=== PATIENT | male | born 1975 | race Caucasian/White ===

== ENCOUNTER 2023-04-24 10:53 | Outpatient (OUT) | payer OTHER, SELFPAY ==
--- NOTE | 2023-04-24 11:00 | ECG_ITS ---
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
== END 2023-04-24 10:54 | disposition home or self-care (01) ==
PROVIDERS: PCP Family Medicine; Visit Provider Surgery
DX: Z01.810 Encounter for preprocedural cardiovascular examination (principal); R00.1 Bradycardia, unspecified; K40.91 Unilateral inguinal hernia, without obstruction or gangrene, recurrent
CPT/HCPCS: 93005

== ENCOUNTER 2023-05-01 08:53 | Day surgery (SDC) | payer OTHER, SELFPAY ==
[2023-04-24 11:13] VITALS: PULSE 59; RESP 14; TEMP 36.3; O2SAT 97; BMI 27.1
[2023-05-01] VITALS (9 sets, daily range): BP systolic 96–120; BP diastolic 62–84; PULSE 59–82; RESP 10–20; TEMP 36.2–36.4; O2SAT 94–99; BMI 26.5
[2023-05-01] MEDS: LACTATED RINGER'S SOLUTION 1,000 ML 50 ML IV ×2 (09:35→13:08)
[2023-05-01] MEDS: CEFAZOLIN SODIUM/DEXTROSE 2 GM/50 ML PIGGYBACK IV (10:39)
[2023-05-01] MEDS: LACTATED RINGER'S SOLUTION 1,000 ML 1000 ML IV (11:25)
[2023-05-01] MEDS: BUPIVACAINE HCL 0.25% PF 25 MG/10 ML VIAL INJ (11:32)
[2023-05-01] MEDS: BUPIVACAINE LIPOSOME/PF 266 MG/13.3 ML VIAL INJ (11:32)
--- NOTE | 2023-05-01 13:03 | PC.NURSE ---
3 dressings across abdomen dry and intact x3
--- NOTE | 2023-05-01 13:07 | PC.NURSE ---
dressings x3 across abdomen dry and intact
--- NOTE | 2023-05-01 13:09 | P.GSPRC_ITS ---
Indications for Procedure: Patient is a 47-year-old male who was seen recently for an apparent recurrent right inguinal hernia. Following evaluation robotic repair of the recurrent right inguinal hernia was recommended. The risks benefits options and potential complications of the procedure were discussed in detail with the patient agreed to proceed and consent was signed. Pre-op diagnosis: recurrent right Inguinal hernia Post-op diagnosis: same Procedure: Robotic repair of # inguinal hernia with mesh Anesthesia: CAMILA Surgeon: Randolph Perry Procedure Summary: Patient was brought to the operating room and placed in the supine position. Gen. anesthesia was induced the patient was intubated. The abdomen is prepped in sterile fashion. Anesthesia performed a regional block. Abdomen is then again prepped and draped in sterile fashion. following local anesthesia a small incision was made in the left upper abdomen. with laparoscopic guidance an 8 mm robotic trocar was placed through this incision and advanced into the peritoneal cavity. The abdomen is then insufflated to 15 mmHg of carbon dioxide. The camera was introduced and safe port site entry confirmed. Two additional 8 mm robotic ports were placed one in the right lateral abdomen and one just superior to the umbilicus following local anesthesia under direct visualization. The patient was then placed in Trendelenburg position. At this time the da Carlee XI was brought to the field. All ports were docked and instruments introduced in standard fashion. At this time I left the operating table and attended the surgeon's funeral pre arrangement counselor. The right inguinal hernia was readily identified. The peritoneum was incised above the defect from the midline extending to the right lateral abdomen. The peritoneal flap was then created with electrocautery as well as blunt and sharp dissection. A relatively large hernia sac was identified. With a combination of the traction as well as cautery and sharp dissection the sac was freed from the associated cord structures and completely reduced to the level of the peritoneum. Jamil's ligament was then identified also. The pre-peritoneal space was then further expanded to allow mesh placement. A 15 cm x 9 cm progrip mesh was then introduced into the peritoneal cavity. This was placed in the preperitoneal space and unfolded and flattened with excellent coverage of the hernia defect as well as other potential sites for defects. Hemostasis was noted. The peritoneal defect was then closed with a running suture of 3-0V LOC. No other abnormalities were noted. The da Carlee XI was then undocked and the abdomen desufflated with removal of the ports. Incisions were closed with subcuticular sutures of 4-0 Vicryl. Sponge needle and instrument counts were correct at the end of the procedure. The patient tolerated the procedure well and was transferred to the recovery area in stable condition. Estimated blood loss (mL): 5 Specimens: None Complications: No
--- NOTE | 2023-05-01 13:13 | PC.NURSE ---
dressings x3 to abdomen dry and intact
--- NOTE | 2023-05-01 13:18 | PC.NURSE ---
Dressings x3 across abdomen dry and intact
--- NOTE | 2023-05-01 13:53 | PC.NURSE ---
scant bloody drainage on each of 3 dressings across abdomen; areas marked
--- NOTE | 2023-05-01 14:21 | PC.NURSE ---
iNCISIONS X3 WITH SCANT BLOODY DRAINAGE ON EACH DRESSING X3
== END 2023-05-01 14:23 | disposition home or self-care (01) ==
PROVIDERS: PCP Internal Medicine; Visit Provider Surgery
PROC: (CPT 49651; principal; 2023-05-01 10:00)
DX: K40.91 Unilateral inguinal hernia, without obstruction or gangrene, recurrent (principal); G89.18 Other acute postprocedural pain; R10.9 Unspecified abdominal pain
CPT/HCPCS: 49651; 93005; 96361; 96374; 96375; 99284; C1781; J1170; J2704

== ENCOUNTER 2023-05-01 18:54 | Emergency (ER) | payer OTHER, SELFPAY ==
[2023-05-01] VITALS (7 sets, daily range): BP systolic 116–128; BP diastolic 68–79; PULSE 86–94; RESP 16–18; TEMP 36.9; O2SAT 91–94; BMI 26.4
--- NOTE | 2023-05-01 19:12 | ED_ITS ---
HPI - Abdominal Pain General Chief Complaint: Abdominal Pain Stated Complaint: abdominal pain Time Seen by Provider: 05/01/23 19:03 Source: patient Mode of arrival: ambulance Limitations: no limitations History of Present Illness HPI narrative: This 47-year-old male was brought to the emergency department by EMS from home. He had a inguinal herniorrhaphy earlier today with Dr. Perry. He was given [place] to take for pain but told only take half of one later this evening. He states he is in severe pain. He states that he took some Tylenol earlier in the day. After getting home he urinated and went to sleep. When he woke up and went to urinate the 2nd time he states he had sharp stabbing lower abdominal pain and passed out striking the wall. He denies any nausea at this time. He has not been passing gas. MD elicited complaint: Reports abdominal pain Related Data Previous Rx's Medication Instructions Recorded hydrocodone 5 mg-acetaminophen 325 1 tab PO Q6H PRN pain #14 tabs 05/01/23 mg tablet Allergies Allergy/AdvReac Type Severity Reaction Status Date / Time Penicillins Allergy Rash Verified 04/24/23 11:11 Review of Systems ROS Status of ROS 10 or more systems reviewed and unremarkable except as noted in history and below [facility] Medical History (Updated 05/01/23 @ 20:08 by Maria R Cifuentes MD) Surgical History (Updated 04/24/23 @ 11:18 by Ellen Kelly NP) Family History (Updated 04/24/23 @ 11:10 by Ellen Kelly NP) Other Family history of cancer Family history of diabetes mellitus Social History (Updated 04/24/23 @ 11:12 by Ellen Kelly NP) Within the past year, how often did you have a drink containing alcohol: 2-4 times a month Smoking status: Never smoker Non-prescribed substance use: cannabis (any form) 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 General: The patient appears well however uncomfortable due to abdominal pain Skin: Warm, dry, no pallor noted. There is no rash noted. Head: Normocephalic, atraumatic Eye: Normal conjunctiva, no drainage, EOMI. PERRL Ears, Nose, Mouth, and Throat: oral mucosa is moist. Cardiovascular: Regular Rate and Rhythm Respiratory: Patient is in no distress, no accessory muscle use, lungs are clear to auscultation, no wheezing, rales or rhonchi Back: non-tender, no CVA tenderness bilaterally to percussion. GI: Abdomen is softly distended, laparoscopic incision sites on the abdominal wall are clean dry and intact. Decreased bowel sounds are present. Mild ecchymosis of the right testicle is noted. Musculoskeletal: The patient has no evidence of calf tenderness, no pitting edema, symmetrical pulses noted bilaterally Neurological: A&O x4, normal speech Psychiatric: Cooperative Constitutional Vital Signs, click to edit/add: Last Vital Signs Temp 98.5 F 05/01/23 18:57 Pulse 94 H 05/01/23 19:52 Resp 18 05/01/23 19:52 BP 128/78 H 05/01/23 20:45 Pulse Ox 91 L 05/01/23 20:45 O2 Del Method Room Air 05/01/23 18:57 Course Vital Signs Vital signs: Vital Signs Temperature 98.5 F 05/01/23 18:57 Pulse Rate 86 05/01/23 18:57 Respiratory Rate 16 05/01/23 18:57 Blood Pressure 124/74 H 05/01/23 18:57 Pulse Oximetry 94 L 05/01/23 18:57 Oxygen Delivery Method Room Air 05/01/23 18:57 Temperature 98.5 F 05/01/23 18:57 Pulse Rate 94 H 05/01/23 19:52 Respiratory Rate 18 05/01/23 19:52 Blood Pressure 128/78 H 05/01/23 20:45 Pulse Oximetry 91 L 05/01/23 20:45 Oxygen Delivery Method Room Air 05/01/23 18:57 MDM - Abdominal Pain MDM Narrative Medical decision making narrative: This 47-year-old male presents for evaluation of abdominal pain after having an inguinal herniorrhaphy earlier today. He states he took some Tylenol at home but did not take any of the [place] that was prescribed to him for his postoperative pain. His abdomen is softly distended. He is not vomiting. Exam is consistent with immediate postoperative period. He has urinated several times but stated that he got up to urinate and passed out. EKG was ordered and shows a sinus rhythm with a left axis, but is otherwise normal. An IV was placed and he was given IV fluids, Zofran and 1 mg of Dilaudid to control his pain. He was then given an oral [place]. I discussed with him that he is going tto have to stay on his prescribed pain medications around the clock for the next several days. His mother is here and verbalized understanding of these instructions. He will be given a prescription for Zofran to use to prevent nausea related to the narcotic analgesics and also Colace to prevent constipation from the narcotic analgesics. ECG Data Attestation: I personally reviewed and interpreted this ECG as follows: (Sinus rhythm at 89 beats for minute, left axis deviation, nonspecific ST changes, no acute ST segment elevation or T-wave inversion) Discharge Plan Discharge Chief Complaint: Abdominal Pain Clinical Impression: Post-operative pain Patient Disposition: Home, Self-Care Time of Disposition Decision: 20:07 Condition: Good Mode of Transportation: Private Vehicle Prescriptions / Home Meds: No Action hydrocodone-acetaminophen 5-325 mg tablet 1 tab PO Q6H PRN (Reason: pain) Qty: 14 0RF Instructions: Abdominal Pain (ED) Stand Alone Forms: Portal Instructions Referrals: Shaikh Valdez MD [Primary Care Provider] - 1 week Discharge Date/Time: 05/01/23 21:17
[2023-05-01] MEDS: 0.9 % SODIUM CHLORIDE 1,000 ML 1000 ML IV (19:28)
[2023-05-01] MEDS: HYDROMORPHONE HCL 0.5 MG/0.5 ML SYRINGE 1 MG IV (19:28)
[2023-05-01] MEDS: ONDANSETRON PF 4 MG/2 ML VIAL IV (19:28)
--- NOTE | 2023-05-01 20:08 | ECG_ITS ---
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
[2023-05-01] MEDS: HYDROCODONE/ACETAMINOPHEN 5-325 MG TABLET 1 TAB PO (20:25)
== END 2023-05-01 21:17 | disposition home or self-care (01) ==
PROVIDERS: Emergency Provider Emergency Medicine; PCP Internal Medicine
DX: G89.18 Other acute postprocedural pain (principal); R10.9 Unspecified abdominal pain
CPT/HCPCS: 93005; 96361; 96374; 96375; 99284; J1170

== ENCOUNTER 2023-05-02 11:56 | Emergency (ER) | payer OTHER, SELFPAY ==
[2023-05-02 12:04] VITALS: BP 112/90; PULSE 104; RESP 24; TEMP 36.6; O2SAT 95; BMI 26.4
--- NOTE | 2023-05-02 12:35 | XR_ITS ---
The [address] [address] Patient Name: NASIR RUST MRN: [id number] date: 1975 Sex: M Assigned Patient Location: ED.MAIN Current Patient Location: ER Accession/Order Number: [id number] Exam Date: 05/02/2023 12:58 Report Date: 05/02/2023 13:17 At the request of: CONTRERAS VALERO Procedure: XR acute abdomen series EXAMINATION: XR acute abdomen series HISTORY: s/p hernia surgery, pain COMPARISON: No relevant comparison available. FINDINGS: LUNGS: Low lung volumes. Moderate left basilar infiltrate. MEDIASTINUM: No abnormal widening. BOWEL GAS PATTERN: Non-obstructed. FREE AIR: Moderate free air beneath the right hemidiaphragm CALCIFICATIONS: None significant. BONES: No fracture or visible bone lesion. OTHER: Negative. XR/XR acute abdomen series IMPRESSION: Free intraperitoneal air likely related to recent surgery Left basilar infiltrate Electronically authenticated by: TY BUI Date: 05/02/2023 13:17
[2023-05-02] MEDS: ONDANSETRON PF 4 MG/2 ML VIAL IV (12:48)
[2023-05-02] MEDS: KETOROLAC TROMETHAMINE 30 MG/ML VIAL 15 MG IVP (12:48)
[2023-05-02] MEDS: 0.9 % SODIUM CHLORIDE 1,000 ML 100 ML IV (12:49)
[2023-05-02 12:51] LABS: Basophils Absolute Auto 0.1 10^3/uL (0.0-0.1); Basophils Percent Auto 0.3 % (0.2-2.0); Hematocrit 50.8 % (42.0-54.0); Hemoglobin 17.2 g/dL (14.0-18.0); Immature Granulocytes Abs Auto 0.05 10^3/uL (0.00-0.03); Immature Granulocytes Pct Auto 0.3 % (0.0-0.5); Lymphocytes Absolute Auto 1.2 10^3/uL (1.2-3.8); Lymphocytes Percent Auto 6.6 % (20.5-60.0); Mean Corpuscular HGB Conc 33.9 g/dL (29.9-35.2); Mean Corpuscular Hemoglobin 28.7 pg (25.9-34.0); Mean Corpuscular Volume 84.7 fL (80.0-94.0); Mean Platelet Volume 9.1 fL (9.5-13.5); Monocytes Absolute Auto 0.6 10^3/uL (0.3-0.8); Monocytes Percent Auto 3.1 % (1.7-12.0); Neutrophils Absolute Auto 16.7 10^3/uL (1.4-6.5); Neutrophils Percent Auto 89.7 % (43.0-75.0); Platelet Count 373 10^3/uL (150-450); Red Cell Distribution Width 14.5 % (11.0-15.0); White Blood Count 18.6 10^3/uL (4.0-11.0)
[2023-05-02 13:06] LABS: Alanine Aminotransferase 22 U/L (16-63); Albumin Globulin Ratio 0.9; Albumin Level 3.6 g/dL (3.4-5.0); Alkaline Phosphatase 66 U/L (46-116); Aspartate Amino Transferase 13 U/L (15-37); BUN Creatinine Ratio 11.9; Bilirubin Total 1.9 mg/dL (0.2-1.0); Carbon Dioxide 23.7 mmol/L (21.0-32.0); Chloride 100 mmol/L (98-107); Estimated GFR (African America >60 (>=60); Estimated GFR (Non-African Ame >60 (>=60); Globulin 3.8 g/dL; Glucose 181 mg/dL (74-106); Potassium 3.7 mmol/L (3.5-5.1); Sodium 138 mmol/L (136-145); Total Protein 7.4 g/dL (6.4-8.2)
--- NOTE | 2023-05-02 13:26 | ED.ABDPAIN1 ---
Documented by User: Carmita Glass 05/02/23 17:18 HPI - Abdominal Pain General Chief Complaint: Abdominal Pain Stated Complaint: VOMITING Time Seen by Provider: 05/02/23 12:34 Source: patient Mode of arrival: Wheelchair Limitations: no limitations History of Present Illness HPI narrative: 47 year old male presents to the ED for generalized abd pain. Onset was last night. Reports an episode of emesis this morning. Denies diarhea, urinary sx. He had right inguinal hernia repair yesterday morning. Denies fever, chills, SOB, CP, dizziness. States his emesis was dark in color; he did drink prune juice prior to the episode. Rates his pain 10/10 at this time. He is accompanied by family. MD elicited complaint: Reports abdominal pain Related Data Previous Rx's Medication Instructions Recorded hydrocodone 5 mg-acetaminophen 325 1 tab PO Q6H PRN pain #14 tabs 05/01/23 mg tablet Allergies Allergy/AdvReac Type Severity Reaction Status Date / Time Penicillins Allergy Rash Verified 04/24/23 11:11 Review of Systems ROS Constitutional Denies: fever or chills Ears, nose, mouth, and throat Denies: throat pain Cardiovascular Denies: chest pain Respiratory Denies: shortness of breath Gastrointestinal Reports: abdominal pain, nausea and vomiting; Denies: diarrhea Genitourinary Denies: painful urination, urinary frequency, urinary urgency or blood in urine Musculoskeletal Denies: back pain or neck pain Integumentary/Breast Denies: rash PFSH PFSH Medical History (Updated 05/02/23 @ 15:13 by Carmita Glass) Surgical History (Updated 04/24/23 @ 11:18 by Ellen Kelly NP) Family History (Updated 04/24/23 @ 11:10 by Ellen Kelly NP) Other Family history of cancer Family history of diabetes mellitus Social History (Updated 04/24/23 @ 11:12 by Ellen Kelly NP) Within the past year, how often did you have a drink containing alcohol: 2-4 times a month Smoking status: Never smoker Non-prescribed substance use: cannabis (any form) 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 Highest level of school completed/degree received: high school graduate Exam Constitutional Vital Signs, click to edit/add: Last Vital Signs Temp 98.8 F 05/02/23 15:29 Pulse 89 05/02/23 15:29 Resp 14 05/02/23 15:29 BP 123/74 H 05/02/23 15:29 Pulse Ox 95 05/02/23 15:29 O2 Del Method Room Air 05/02/23 15:29 Common normals: no apparent distress Exam limitations: no altered mental status General appearance: cooperative Orientation/consciousness: Yes awake HENMT Mouth: lip normal Respiratory Common normals: normal respiratory effort Effort & inspection: able to speak in complete sentences and symmetric chest movement Cardio Rate: tachycardic Rhythm: regular rhythm GI Common normals: soft to palpation; tender Inspection: incision (Three incision sites across mid abdomen. ) Inspection of incision: other (No surrounding erythema. ); no drainage (No bleeding or drainage.) Auscultation: normoactive bowel sounds Palpation: soft and tender (Generalized tenderness.); no guarding Course Vital Signs Vital signs: Vital Signs Temperature 97.8 F 05/02/23 12:04 Pulse Rate 104 H 05/02/23 12:04 Respiratory Rate 24 05/02/23 12:04 Blood Pressure 112/90 H 05/02/23 12:04 Pulse Oximetry 95 05/02/23 12:04 Oxygen Delivery Method Room Air 05/02/23 12:04 Temperature 98.8 F 05/02/23 15:29 Pulse Rate 89 05/02/23 15:29 Respiratory Rate 14 05/02/23 15:29 Blood Pressure 123/74 H 05/02/23 15:29 Pulse Oximetry 95 05/02/23 15:29 Oxygen Delivery Method Room Air 05/02/23 15:29 MDM - Abdominal Pain MDM Narrative Medical decision making narrative: CBC, CMP were unremarkable. CT scan was negative for acute findings; showed postoperative pneumoperitoneum and small volume of ascites, colonic diverticulosis, prostatomegaly. Findings were discussed with the patient. He was given medication here with improvement in his discomfort. He forgot his prescriptions for Zofran and Colace from the visit last night; these were given to him. He has norco at home for pain. He was encouraged to take his medications as directed. Follow up with pcp and the surgeon for a recheck, further evaluation and treatment. Differential Diagnosis Differential diagnosis: Likely abdominal pain, constipation and other (SBO, post-op pain) Lab Data Attestation: I reviewed the patient's lab results. Labs: Lab Results 05/02/23 Range/Units 12:25 WBC 18.6 H (4.0-11.0) 10^3/uL RBC 6.00 (4.70-6.10) 10^6/uL Hgb 17.2 (14.0-18.0) g/dL Hct 50.8 (42.0-54.0) % MCV 84.7 (80.0-94.0) fL MCH 28.7 (25.9-34.0) pg MCHC 33.9 (29.9-35.2) g/dL RDW 14.5 (11.0-15.0) % Plt Count 373 (150-450) 10^3/uL MPV 9.1 L (9.5-13.5) fL Neut % (Auto) 89.7 H (43.0-75.0) % Lymph % (Auto) 6.6 L (20.5-60.0) % [place] % (Auto) 3.1 (1.7-12.0) % Eos % (Auto) 0.0 L (0.9-7.0) % Baso % (Auto) 0.3 (0.2-2.0) % Neut # (Auto) 16.7 H (1.4-6.5) 10^3/uL Lymph # (Auto) 1.2 (1.2-3.8) 10^3/uL [place] # (Auto) 0.6 (0.3-0.8) 10^3/uL Eos # (Auto) 0.0 (0.0-0.7) 10^3/uL Baso # (Auto) 0.1 (0.0-0.1) 10^3/uL Abs Immat Gran (auto) 0.05 H (0.00-0.03) 10^3/uL Imm/Tot Granulo (auto) 0.3 (0.0-0.5) % Sodium 138 (136-145) mmol/L Potassium 3.7 (3.5-5.1) mmol/L Chloride 100 (98-107) mmol/L Carbon Dioxide 23.7 (21.0-32.0) mmol/L Anion Gap 18.0 BUN 12.0 (7.0-18.0) mg/dL Creatinine 1.01 (0.70-1.30) mg/dL Est GFR ( Amer) >60 (>=60) Est GFR (Non-Af Amer) >60 (>=60) BUN/Creatinine Ratio 11.9 Glucose 181 H (74-106) mg/dL Calcium 9.0 (8.5-10.1) mg/dL Total Bilirubin 1.9 H (0.2-1.0) mg/dL AST 13 L (15-37) U/L ALT 22 (16-63) U/L Alkaline Phosphatase 66 (46-116) U/L Total Protein 7.4 (6.4-8.2) g/dL Albumin 3.6 (3.4-5.0) g/dL Globulin 3.8 g/dL Albumin/Globulin Ratio 0.9 Lipase 180.0 (73.0-393.0) U/L Imaging Data Abdominal x-ray: Radiologist's impression: Procedure: XR acute abdomen series EXAMINATION: XR acute abdomen series HISTORY: s/p hernia surgery, pain COMPARISON: No relevant comparison available. FINDINGS: LUNGS: Low lung volumes. Moderate left basilar infiltrate. MEDIASTINUM: No abnormal widening. BOWEL GAS PATTERN: Non-obstructed. FREE AIR: Moderate free air beneath the right hemidiaphragm CALCIFICATIONS: None significant. BONES: No fracture or visible bone lesion. OTHER: Negative. IMPRESSION: Free intraperitoneal air likely related to recent surgery Left basilar infiltrate Electronically authenticated by: TY BUI Date: 05/02/2023 13:17 CT scan - abdomen: Radiologist's impression: CT abdomen pelvis w con, 05/02/2023 2:27 PM EDT INDICATION: Abd pain, recent surgery COMPARISON: Radiographs of the abdomen 05/02/2023, noncontrast CT scan of the abdomen and pelvis 09/20/2016 TECHNIQUE: Axial images of the abdomen and pelvis were obtained after the administration of IV contrast. Multiplanar reformatted images were generated and reviewed as needed. Dose reduction techniques were achieved by using automated exposure control and/or adjustment of mA and/or kV according to patient size and/or use of iterative reconstruction technique. FINDINGS: Bilateral lower lobe consolidation and a focal consolidation within the lingula. No effusion. Subcentimeter hepatic hypodensities, too small to characterize. Stable 2.5 cm hypodense splenic nodule with rim calcification, previously 2.4 cm. The pancreas and adrenals are unremarkable. Symmetric nephrograms without evidence of obstruction. No urolithiasis. No urinary bladder wall thickening or perivesicular fat stranding. Prostate gland is enlarged. No aortic aneurysm. Pneumoperitoneum, foci of subcutaneous emphysema within the ventral abdominal wall and small volume of ascites, likely postprocedural. Small amount of fluid and foci of air tracking into the right inguinal canal. No bowel obstruction or acute focal inflammation. Colonic diverticulosis. No mesenteric or retroperitoneal lymphadenopathy. No acute fracture or dislocation. Hemangioma T7 vertebral body. IMPRESSION: 1. Postoperative pneumoperitoneum and small volume of ascites. 2. Consolidation within the lung bases bilaterally, likely atelectasis. Underlying infection cannot be excluded. 3. Colonic diverticulosis. No bowel obstruction or focal inflammation. 4. Prostatomegaly. Electronically authenticated by: JANICE IHNES Date: 05/02/2023 15:03 Discharge Plan Discharge Chief Complaint: Abdominal Pain Clinical Impression: Post-operative pain, Abdominal pain Patient Disposition: Home, Self-Care Time of Disposition Decision: 15:12 Condition: Good Mode of Transportation: Private Vehicle Prescriptions / Home Meds: No Action hydrocodone-acetaminophen 5-325 mg tablet 1 tab PO Q6H PRN (Reason: pain) Qty: 14 0RF Instructions: Abdominal Pain (ED) Additional Instructions: Follow up with your surgeon for a recheck, further evaluation and treatment. Stand Alone Forms: Portal Instructions Referrals: Shaikh Valdez MD [Primary Care Provider] - 1 week Discharge Date/Time: 05/02/23 15:36 Documented by User: Sea Camarena MD 05/02/23 19:40 HPI - Abdominal Pain General Chief Complaint: Abdominal Pain Stated Complaint: VOMITING Time Seen by Provider: 05/02/23 12:34 Related Data Previous Rx's Medication Instructions Recorded hydrocodone 5 mg-acetaminophen 325 1 tab PO Q6H PRN pain #14 tabs 05/01/23 mg tablet Allergies Allergy/AdvReac Type Severity Reaction Status Date / Time Penicillins Allergy Rash Verified 04/24/23 11:11 [facility] Medical History (Updated 05/02/23 @ 15:13 by Carmita Glass) Surgical History (Updated 04/24/23 @ 11:18 by Ellen Kelly NP) Family History (Updated 04/24/23 @ 11:10 by Ellen Kelly NP) Other Family history of cancer Family history of diabetes mellitus Social History (Updated 04/24/23 @ 11:12 by Ellen Kelly NP) Within the past year, how often did you have a drink containing alcohol: 2-4 times a month Smoking status: Never smoker Non-prescribed substance use: cannabis (any form) 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 Highest level of school completed/degree received: high school graduate Exam Constitutional Vital Signs, click to edit/add: Last Vital Signs Temp 98.8 F 05/02/23 15:29 Pulse 89 05/02/23 15:29 Resp 14 05/02/23 15:29 BP 123/74 H 05/02/23 15:29 Pulse Ox 95 05/02/23 15:29 O2 Del Method Room Air 05/02/23 15:29 Course Vital Signs Vital signs: Vital Signs Temperature 97.8 F 05/02/23 12:04 Pulse Rate 104 H 05/02/23 12:04 Respiratory Rate 24 05/02/23 12:04 Blood Pressure 112/90 H 05/02/23 12:04 Pulse Oximetry 95 05/02/23 12:04 Oxygen Delivery Method Room Air 05/02/23 12:04 Temperature 98.8 F 05/02/23 15:29 Pulse Rate 89 05/02/23 15:29 Respiratory Rate 14 05/02/23 15:29 Blood Pressure 123/74 H 05/02/23 15:29 Pulse Oximetry 95 05/02/23 15:29 Oxygen Delivery Method Room Air 05/02/23 15:29 MDM - Abdominal Pain MDM Narrative Medical decision making narrative: CBC, CMP were unremarkable. CT scan was negative for acute findings; showed postoperative pneumoperitoneum and small volume of ascites, colonic diverticulosis, prostatomegaly. Findings were discussed with the patient. He was given medication here with improvement in his discomfort. He forgot his prescriptions for Zofran and Colace from the visit last night; these were given to him. He has norco at home for pain. He was encouraged to take his medications as directed. Follow up with pcp and the surgeon for a recheck, further evaluation and treatment. I, Dr Camarena, have reviewed the above progress note and course of action in the ER; agree with the above. I have personally seen and evaluated this patient, gone over history and physical, and discussed disposition and treatment plan with the patient. Lab Data Labs: Lab Results 05/02/23 Range/Units 12:25 WBC 18.6 H (4.0-11.0) 10^3/uL RBC 6.00 (4.70-6.10) 10^6/uL Hgb 17.2 (14.0-18.0) g/dL Hct 50.8 (42.0-54.0) % MCV 84.7 (80.0-94.0) fL MCH 28.7 (25.9-34.0) pg MCHC 33.9 (29.9-35.2) g/dL RDW 14.5 (11.0-15.0) % Plt Count 373 (150-450) 10^3/uL MPV 9.1 L (9.5-13.5) fL Neut % (Auto) 89.7 H (43.0-75.0) % Lymph % (Auto) 6.6 L (20.5-60.0) % [place] % (Auto) 3.1 (1.7-12.0) % Eos % (Auto) 0.0 L (0.9-7.0) % Baso % (Auto) 0.3 (0.2-2.0) % Neut # (Auto) 16.7 H (1.4-6.5) 10^3/uL Lymph # (Auto) 1.2 (1.2-3.8) 10^3/uL [place] # (Auto) 0.6 (0.3-0.8) 10^3/uL Eos # (Auto) 0.0 (0.0-0.7) 10^3/uL Baso # (Auto) 0.1 (0.0-0.1) 10^3/uL Abs Immat Gran (auto) 0.05 H (0.00-0.03) 10^3/uL Imm/Tot Granulo (auto) 0.3 (0.0-0.5) % Sodium 138 (136-145) mmol/L Potassium 3.7 (3.5-5.1) mmol/L Chloride 100 (98-107) mmol/L Carbon Dioxide 23.7 (21.0-32.0) mmol/L Anion Gap 18.0 BUN 12.0 (7.0-18.0) mg/dL Creatinine 1.01 (0.70-1.30) mg/dL Est GFR ( Amer) >60 (>=60) Est GFR (Non-Af Amer) >60 (>=60) BUN/Creatinine Ratio 11.9 Glucose 181 H (74-106) mg/dL Calcium 9.0 (8.5-10.1) mg/dL Total Bilirubin 1.9 H (0.2-1.0) mg/dL AST 13 L (15-37) U/L ALT 22 (16-63) U/L Alkaline Phosphatase 66 (46-116) U/L Total Protein 7.4 (6.4-8.2) g/dL Albumin 3.6 (3.4-5.0) g/dL Globulin 3.8 g/dL Albumin/Globulin Ratio 0.9 Lipase 180.0 (73.0-393.0) U/L Discharge Plan Discharge Chief Complaint: Abdominal Pain Clinical Impression: Post-operative pain, Abdominal pain Patient Disposition: Home, Self-Care Time of Disposition Decision: 15:12 Condition: Good Mode of Transportation: Private Vehicle Prescriptions / Home Meds: No Action hydrocodone-acetaminophen 5-325 mg tablet 1 tab PO Q6H PRN (Reason: pain) Qty: 14 0RF Instructions: Abdominal Pain (ED) Additional Instructions: Follow up with your surgeon for a recheck, further evaluation and treatment. Stand Alone Forms: Portal Instructions Referrals: Shaikh Valdez MD [Primary Care Provider] - 1 week Discharge Date/Time: 05/02/23 15:36
[2023-05-02] MEDS: HYDROMORPHONE HCL 0.5 MG/0.5 ML SYRINGE IV (14:06)
--- NOTE | 2023-05-02 14:15 | CT_ITS ---
The [address] [address] Patient Name: NASIR RUST MRN: [id number] date: 1975 Sex: M Assigned Patient Location: ER Current Patient Location: Accession/Order Number: [id number] Exam Date: 05/02/2023 14:27 Report Date: 05/02/2023 15:03 At the request of: GINA LIRA Procedure: CT abdomen pelvis w con CT abdomen pelvis w con, 05/02/2023 2:27 PM EDT INDICATION: Abd pain, recent surgery COMPARISON: Radiographs of the abdomen 05/02/2023, noncontrast CT scan of the abdomen and pelvis 09/20/2016 TECHNIQUE: Axial images of the abdomen and pelvis were obtained after the administration of IV contrast. Multiplanar reformatted images were generated and reviewed as needed. Dose reduction techniques were achieved by using automated exposure control and/or adjustment of mA and/or kV according to patient size and/or use of iterative reconstruction technique. FINDINGS: Bilateral lower lobe consolidation and a focal consolidation within the lingula. No effusion. Subcentimeter hepatic hypodensities, too small to characterize. Stable 2.5 cm hypodense splenic nodule with rim calcification, previously 2.4 cm. The pancreas and adrenals are unremarkable. Symmetric nephrograms without evidence of obstruction. No urolithiasis. No urinary bladder wall thickening or perivesicular fat stranding. Prostate gland is enlarged. No aortic aneurysm. Pneumoperitoneum, foci of subcutaneous emphysema within the ventral abdominal wall and small volume of ascites, likely postprocedural. Small amount of fluid and foci of air tracking into the right inguinal canal. No bowel obstruction or acute focal inflammation. Colonic diverticulosis. No mesenteric or retroperitoneal lymphadenopathy. No acute fracture or dislocation. Hemangioma T7 vertebral body. CT/CT abdomen pelvis w con IMPRESSION: 1. Postoperative pneumoperitoneum and small volume of ascites. 2. Consolidation within the lung bases bilaterally, likely atelectasis. Underlying infection cannot be excluded. 3. Colonic diverticulosis. No bowel obstruction or focal inflammation. 4. Prostatomegaly. Electronically authenticated by: JANICE HINES Date: 05/02/2023 15:03
[2023-05-02 15:29] VITALS: BP 123/74; PULSE 89; RESP 14; TEMP 37.1; O2SAT 95
== END 2023-05-02 15:36 | disposition home or self-care (01) ==
PROVIDERS: Emergency Provider Emergency Medicine; PCP Internal Medicine
DX: G89.18 Other acute postprocedural pain (principal); R10.9 Unspecified abdominal pain
CPT/HCPCS: 36415; 74022; 74177; 80053; 81003; 83690; 85025; 94667; 96374; 96375; 99285; J1170; Q9967

== ENCOUNTER 2023-05-14 13:26 | Inpatient (IN) | payer OTHER, SELFPAY ==
[2023-05-14] VITALS (56 sets, daily range): BP systolic 110–132; BP diastolic 72–87; PULSE 43–121; RESP 14–33; TEMP 37.3–39.3; O2SAT 91–100; BMI 26.4; BMI 26.5
--- NOTE | 2023-05-14 14:29 | CT_ITS ---
[address] [address] Patient Name: NASIR RUST MRN: [facility]:[id number] date: 1975 Sex: M Assigned Patient Location: ER Current Patient Location: Accession/Order Number: [id number] Exam Date: 05/14/2023 15:40 Report Date: 05/14/2023 16:28 At the request of: LOGAN LENZ Procedure: CT abdomen pelvis w con EXAM: CT abdomen pelvis w con HISTORY: Post op infection COMPARISON: 05/02/2023 TECHNIQUE: Axial CT imaging was performed through the abdomen and pelvis with intravenous contrast. Multiplanar reformats were performed. Dose reduction techniques were achieved by using automated exposure control and/or adjustment of mA and/or kV according to patient size and/or use of iterative reconstruction technique. FINDINGS: Lung bases: Interval decrease in bilateral lower lobe atelectasis and/or consolidation. GI upper: Small hiatal hernia. Liver: Normal size and contour. Gallbladder: No significant abnormality. No cholelithiasis. Biliary system: No intra or extrahepatic biliary ductal dilatation. Spleen: Normal size. Stable 2.4 cm partially rim calcified splenic cyst. Pancreas: Unremarkable. Adrenal glands: Normal adrenal glands. Kidneys/ureters: Normal contours. No hydronephrosis. No nephrolithiasis or ureterolithiasis. Vessels: No aneurysm. Lymph Nodes: No lymphadenopathy. Small bowel: No dilatation. Patchy circumferential wall thickening of the small bowel loops predominantly seen in the left hemiabdomen, infectious or inflammatory/reactive in etiology. Colon: No dilatation. Diffuse circumferential wall thickening, representing infectious or inflammatory/inflammatory colitis. There are colonic diverticula without evidence of acute diverticulitis Appendix: No findings of appendicitis. Peritoneal cavity: There are multiple loculated rim enhancing fluid collection representing abscess throughout the abdomen as follows: Amorphous fluid collection, containing air in the posterior inferior stomach, coursing along the greater curvature and extending into the right lower abdomen, measuring 8.7 x 23 x 22 cm. The fluid collection appears communicating with the splenic flexure diverticulum. (Series 5, image 44) Rim-enhancing fluid collection containing air along the left paracolic gutter, measuring 6.7 x 6.4 x 18.3 cm which communicates with the subcutaneous left mid abdomen lateral to the rectus abdominis (series 3, image 84). No definite skin fistula is noted.. The fluid may communicate with the descending colon diverticula. Mid pelvic/supravesical rim-enhancing fluid collection, measuring 6.3 x 8.7 x 4.7 cm. There are diffuse mesenteric fat stranding and multiple small left paracolic pneumoperitoneum, likely postoperative and/or infectious enteritis. Lower : Unremarkable. Bones: No acute bony abnormality. Soft tissues: No acute finding. Additional findings: None. CT/CT abdomen pelvis w con IMPRESSION: Multiple large abscesses throughout the abdomen as described above, some of which contain foci of gas, representing gas producing abscess or due to complication with the bowel loops and skin as described above. CT evidence of infectious or inflammatory/reactive proximal enteritis and colitis. Electronically authenticated by: JOSE CAMPBELL Date: 05/14/2023 16:28
--- NOTE | 2023-05-14 14:30 | XR_ITS ---
The [address] [address] Patient Name: NASIR RUST MRN: [id number] date: 1975 Sex: M Assigned Patient Location: ER Current Patient Location: ER Accession/Order Number: [id number] Exam Date: 05/14/2023 15:05 Report Date: 05/14/2023 15:33 At the request of: LOGAN LENZ Procedure: XR chest 2V EXAMINATION: XR chest 2V HISTORY: Post op fever , abdominal pain, nausea and vomiting COMPARISON: No relevant comparison available. FINDINGS: LUNGS: Underexpanded lungs with trace amount of stranding within lung bases. VASCULATURE: No increased pulmonary vasculature. PLEURA: No pneumothorax, effusion, or pleural thickening. CARDIAC: No cardiomegaly or cardiac silhouette abnormality. MEDIASTINUM: No visible mass or adenopathy. BONES: No fracture or visible bone lesion. OTHER: Negative. XR/XR chest 2V IMPRESSION: 1. Low lung volume examination. 2. Trace amount of bibasilar atelectasis, or less likely infiltrates. Electronically authenticated by: DAISY REDDY Date: 05/14/2023 15:33
[2023-05-14 15:00] LABS: Hematocrit 36.9 % (42.0-54.0); Hemoglobin 12.6 g/dL (14.0-18.0); Mean Corpuscular HGB Conc 34.1 g/dL (29.9-35.2); Mean Corpuscular Hemoglobin 28.8 pg (25.9-34.0); Mean Corpuscular Volume 84.2 fL (80.0-94.0); Mean Platelet Volume 8.4 fL (9.5-13.5); Platelet Count 726 10^3/uL (150-450); Red Blood Count 4.38 10^6/uL (4.70-6.10); Red Cell Distribution Width 15.9 % (11.0-15.0)
[2023-05-14 15:12] LABS: Alanine Aminotransferase 96 U/L (16-63); Albumin Globulin Ratio 0.4; Albumin Level 2.1 g/dL (3.4-5.0); Alkaline Phosphatase 554 U/L (46-116); Anion Gap 12.5; Aspartate Amino Transferase 29 U/L (15-37); BUN Creatinine Ratio 8.4; Calcium 8.8 mg/dL (8.5-10.1); Carbon Dioxide 25.7 mmol/L (21.0-32.0); Chloride 100 mmol/L (98-107); Estimated GFR (African America >60 (>=60); Estimated GFR (Non-African Ame >60 (>=60); Globulin 5.7 g/dL; Glucose 114 mg/dL (74-106); Potassium 3.2 mmol/L (3.5-5.1); Sodium 135 mmol/L (136-145); Total Protein 7.8 g/dL (6.4-8.2)
[2023-05-14 15:26] LABS: Lactate/Lactic Acid 1.5 mmol/L (0.4-2.0)
[2023-05-14 15:28] LABS: White Blood Count 33.1 10^3/uL (4.0-11.0)
[2023-05-14 15:35] LABS: Segmented Neut Absolute Manual 29.45 10^3/uL (1.4-6.5)
[2023-05-14 15:36] LABS: Lymphocytes Absolute Manual 0.99 10^3/uL (1.20-3.80); Monocytes Absolute Manual 1.65 10^3/uL (0.30-0.80)
--- NOTE | 2023-05-14 16:17 | ECG_ITS ---
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
--- NOTE | 2023-05-14 16:22 | ED.GENADUL1 ---
HPI - General Adult General Chief complaint: Abdominal Pain Stated complaint: VOMITING Time Seen by Provider: 05/14/23 14:29 Source: patient Mode of arrival: walk-in Limitations: no limitations History of Present Illness HPI narrative: Patient is a 47-year-old male who is presenting to the Emergency Room with chief complaint of severe abdominal pain, and fevers for the past [address] Daniel. Dr. Daniel recommended patient come to the Emergency Room immediately for further evaluation. patient had inguinal surgery on May [address] Perry. Patient had a follow-up appointment in his office today, patient was seen and evaluated by Dr. Perry told to come to the Emergency Room. Patient developed fevers on Sunday. Patient's abdominal pain has been worsening for the past couple days. Patient has no suprapubic pain, no pain really hernia repair occurred. Patient has developed headaches since she's been in the Emergency Room. Patient's headache was not the worse headache of her life, not sudden onset, not thunderclap in nature. patient has no chest pain or shortness of breath. Positive fever and chills. Patient states that every bump on the road on the way to the hospital today and bumps in the hallway when a CAT scan are hurting. No difficulty urinating. No urinary frequency or urgency or burning. No diarrhea or constipation. No other acute complaints. . All systems are negative except as noted/marked. All systems reviewed and otherwise negative. . Nurses note and vital signs reviewed and patient is not hypoxic. General: The patient appears well and in mild distress secondary to pain. Patient is resting uncomfortably on cart. Patient is not toxic, lethargic, or listless Skin: Warm, dry, no pallor noted. There is no rash noted. No petechiae, purpura. Head: Normocephalic, atraumatic Eye: Normal conjunctiva, no drainage, EOMI. PERRL Ears, Nose, Mouth, and Throat: oral mucosa is moist. Nares patent. Mouth without vesicles. Cardiovascular: Regular Rate and Rhythm, no murmur, gallop, rub Respiratory: Patient is in no distress, no accessory muscle use, lungs are clear to auscultation, no wheezing, rales or rhonchi Back: non-tender, no CVA tenderness bilaterally to percussion. No CT LS midline pain GI: soft, severe diffuse tenderness to palpation, no masses appreciated. + rebound, + diffuse guarding, NO rigidity noted. No flank pain bilateral, No distention. Patient's surgical incisions are clean, dry, intact. Musculoskeletal: Patient has full range of motion of all of the extremities, no motor, sensory, or focal neurological deficits Neurological: A&O x3, normal speech Psychiatric: Cooperative Related Data Previous Rx's Medication Instructions Recorded hydrocodone 5 mg-acetaminophen 325 1 tab PO Q6H PRN pain #14 tabs 05/01/23 mg tablet Allergies Allergy/AdvReac Type Severity Reaction Status Date / Time Penicillins Allergy Rash Verified 04/24/23 11:11 [facility] Medical History (Updated 05/14/23 @ 19:59 by Sea Camarena MD) Surgical History (Updated 04/24/23 @ 11:18 by Ellen Kelly NP) Family History (Updated 04/24/23 @ 11:10 by Ellen Kelly NP) Other Family history of cancer Family history of diabetes mellitus Social History (Updated 04/24/23 @ 11:12 by Ellen Kelly NP) Within the past year, how often did you have a drink containing alcohol: 2-4 times a month Smoking status: Never smoker Non-prescribed substance use: cannabis (any form) 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 Highest level of school completed/degree received: high school graduate Exam Constitutional Vital Signs, click to edit/add: Last Vital Signs Temp 99.2 F 05/14/23 13:36 Pulse 114 H 05/14/23 18:40 Resp 05/14/23 18:20 BP 120/82 05/14/23 19:00 Pulse Ox 94 L 05/14/23 19:10 O2 Del Method Room Air 05/14/23 13:36 Course Vital Signs Vital signs: Vital Signs Temperature 99.2 F 05/14/23 13:36 Pulse Rate 121 H 05/14/23 13:36 Respiratory Rate 20 05/14/23 13:36 Blood Pressure 112/79 05/14/23 13:36 Pulse Oximetry 97 05/14/23 13:36 Oxygen Delivery Method Room Air 05/14/23 13:36 Temperature 99.2 F 05/14/23 13:36 Pulse Rate 114 H 05/14/23 18:40 Respiratory Rate 23 31/23 18:20 Blood Pressure 120/82 05/14/23 19:00 Pulse Oximetry 94 L 05/14/23 19:10 Oxygen Delivery Method Room Air 05/14/23 13:36 Medical Decision Making MDM Narrative Medical decision making narrative: patient was tachycardic. Patient has been receiving IV fluids. Patient has no fever, but patient does have elevated white blood cells and 33. 1600 approx it was noted the patient is most likely meaning sepsis measures with tachycardia, and elevated white blood cells of 33. Sepsis protocol has been initiated. Patient is having another IV placed. Patient will receive 3000 L of lactated Ringer's, patient's been given Dilaudid, Zofran, patient has a penicillin ALLERGY, patient will be given cefoxitin and vancomycin. [id number] Dr Daniel has been paged, this is Dr. Daniel surgical patient I have spoken to patient's surgeon, Dr. Perry. He agreed with admission to the hospital, treat with antibiotics, keep patient nothing by mouth after midnight, and he will most likely be taking patient to surgery tomorrow. Patient's case was presented to Dr. Rodrigues, Dr. Rodrigues agrees with admission. Dr. Rodrigues came to see and evaluate the patient in the Emergency Room prior to transfer to the nursing floor. Patient has responded to IV fluids, antibiotics, Dilaudid and Zofran. Critical care time 35 minutes exclusive from separate billable procedures that were performed. The following was considered in the determination of critical care but not limited to the level of medical decision making, intensive cardiac and/or respiratory monitoring, frequent vital sign monitoring, evaluation of laboratory studies, evaluation of radiographic studies, oxygen monitoring, and constant monitoring and speaking to family at bedside Lab Data Lab results reviewed: Yes I reviewed the patient's lab results Labs: Lab Results 05/14/23 05/14/23 Range/Units 14:50 16:37 WBC 33.1 H* (4.0-11.0) 10^3/uL RBC 4.38 L (4.70-6.10) 10^6/uL Hgb 12.6 L (14.0-18.0) g/dL Hct 36.9 L (42.0-54.0) % MCV 84.2 (80.0-94.0) fL MCH 28.8 (25.9-34.0) pg MCHC 34.1 (29.9-35.2) g/dL RDW 15.9 H (11.0-15.0) % Plt Count 726 H (150-450) 10^3/uL MPV 8.4 L (9.5-13.5) fL Seg Neuts % (Manual) 89.0 Band Neutrophils % 3.0 (0-5) % Lymphocytes % (Manual) 3.0 L (20.5-60.0) % Monocytes % (Manual) 5.0 (1.7-12.0) % Eosinophils % (Manual) 0.0 L (0.9-7.0) % Basophils % (Manual) 0.0 L (0.2-2.0) % Neutrophils # (Manual) 29.45 H (1.4-6.5) 10^3/uL Band Neutrophils # 1.0 H (0.0-0.3) 10^3/uL Lymphocytes # (Manual) 0.99 L (1.20-3.80) 10^3/uL Monocytes # (Manual) 1.65 H (0.30-0.80) 10^3/uL Eosinophils # (Manual) 0.00 (0.00-0.70) 10^3/uL Basophils # (Manual) 0.00 (0.00-0.10) 10^3/uL PT 10.9 (9.0-11.6) sec INR 1.03 VBG pH 7.493 H (7.330-7.430) VBG pCO2 33.7 L (40.0-52.0) mmHg Sodium 135 L (136-145) mmol/L Potassium 3.2 L (3.5-5.1) mmol/L Chloride 100 (98-107) mmol/L Carbon Dioxide 25.7 (21.0-32.0) mmol/L Anion Gap 12.5 BUN 8.0 (7.0-18.0) mg/dL Creatinine 0.95 (0.70-1.30) mg/dL Est GFR ( Amer) >60 (>=60) Est GFR (Non-Af Amer) >60 (>=60) BUN/Creatinine Ratio 8.4 Glucose 114 H (74-106) mg/dL Lactate 1.5 1.3 (0.4-2.0) mmol/L Calcium 8.8 (8.5-10.1) mg/dL Magnesium 2.2 (1.8-2.4) mg/dL Total Bilirubin 1.0 (0.2-1.0) mg/dL AST 29 (15-37) U/L ALT 96 H (16-63) U/L Alkaline Phosphatase 554 H (46-116) U/L Total Protein 7.8 (6.4-8.2) g/dL Albumin 2.1 L (3.4-5.0) g/dL Globulin 5.7 g/dL Albumin/Globulin Ratio 0.4 Lipase 567.0 H (73.0-393.0) U/L Imaging Data CT scan - abdomen: Attestation: I have reviewed the pertinent imaging results. My impression: [email or web address] Find: Highlight all Match case Current View [email or web address],-[id number] Page: of 2 Current View [email or web address],-[id number] [place] [id number] Patient Name: NASIR RUST MRN: [id number] date: 1975 Sex: M Assigned Patient Location: ER Current Patient Location: ER Accession/Order Number: [id number] Exam Date: 05/14/2023 15:40 Report Date: 05/14/2023 16:28 At the request of: LOGAN LENZ Procedure: CT abdomen pelvis w con EXAM: CT abdomen pelvis w con HISTORY: Post op infection COMPARISON: 05/02/2023 TECHNIQUE: Axial CT imaging was performed through the abdomen and pelvis with intravenous contrast. Multiplanar reformats were performed. Dose reduction techniques were achieved by using automated exposure control and/or adjustment of mA and/or kV according to patient size and/or use of iterative reconstruction technique. FINDINGS: Lung bases: Interval decrease in bilateral lower lobe atelectasis and/or consolidation. GI upper: Small hiatal hernia. Liver: Normal size and contour. Gallbladder: No significant abnormality. No cholelithiasis. Biliary system: No intra or extrahepatic biliary ductal dilatation. Spleen: Normal size. Stable 2.4 cm partially rim calcified splenic cyst. Pancreas: Unremarkable. Adrenal glands: Normal adrenal glands. Kidneys/ureters: Normal contours. No hydronephrosis. No nephrolithiasis or ureterolithiasis. Vessels: No aneurysm. Lymph Nodes: No lymphadenopathy. Small bowel: No dilatation. Patchy circumferential wall thickening of the small bowel loops predominantly seen in the left hemiabdomen, infectious or inflammatory/reactive in etiology. Colon: No dilatation. Diffuse circumferential wall thickening, representing infectious or inflammatory/inflammatory colitis. There are colonic diverticula without evidence of acute diverticulitis Appendix: No findings of appendicitis. Peritoneal cavity: There are multiple loculated rim enhancing fluid collection representing abscess throughout the abdomen as follows: Amorphous fluid collection, containing air in the posterior inferior stomach, coursing along the greater curvature and extending into the right lower abdomen, measuring 8.7 x 23 x 22 cm. The fluid collection appears communicating with the splenic flexure diverticulum. (Series 5, image 44) Rim-enhancing fluid collection containing air along the left paracolic gutter, measuring 6.7 x 6.4 x 18.3 cm which communicates with the subcutaneous left mid abdomen lateral to the rectus abdominis (series 3, image 84). No definite skin fistula is noted.. The fluid may communicate with the descending colon diverticula. Mid pelvic/supravesical rim-enhancing fluid collection, measuring 6.3 x 8.7 x 4.7 cm. There are diffuse mesenteric fat stranding and multiple small left paracolic pneumoperitoneum, likely postoperative and/or infectious enteritis. Lower : Unremarkable. Bones: No acute bony abnormality. Soft tissues: No acute finding. Additional findings: None. IMPRESSION: Multiple large abscesses throughout the abdomen as described above, some of which contain foci of gas, representing gas producing abscess or due to complication with the bowel loops and skin as described above. CT evidence of infectious or inflammatory/reactive proximal enteritis and colitis. Electronically authenticated by: JOSE CAMPBELL Date: 05/14/2023 16:28 ECG Data Attestation: I personally reviewed and interpreted this ECG as follows: Interpretation: EKG interpretation. Sinus tachycardia at 111. Left axis deviation. No acute ST elevation. QTC of 392 Discharge Plan Discharge Chief Complaint: Abdominal Pain Clinical Impression: Leukocytosis, Post-operative pain, Abdominal abscess, Sepsis, Abdominal pain, Febrile illness, Dehydration Patient Disposition: Admitted As Inpatient Condition: Serious
[2023-05-14] MEDS: HYDROMORPHONE HCL 2 MG/ML VIAL 1 MG IV (16:33)
[2023-05-14] MEDS: PROCHLORPERAZINE 10 MG/2 ML VIAL IV (16:33)
[2023-05-14] MEDS: CEFOXITIN SODIUM 2,000 MG in 0.9 % SODIUM CHLORIDE 100 ML IV (16:33)
[2023-05-14] MEDS: ONDANSETRON PF 4 MG/2 ML VIAL IV (16:33)
[2023-05-14] MEDS: LACTATED RINGER'S SOLUTION 1,000 ML 3000 ML IV (16:34)
[2023-05-14 16:53] LABS: PCO2 VBG 33.7 mmHg (40.0-52.0); pH VBG 7.493 (7.330-7.430)
[2023-05-14] MEDS: VANCOMYCIN HCL 1,500 MG in 0.9 % SODIUM CHLORIDE 500 ML 250 MG IV (17:05)
[2023-05-14 17:08] LABS: Magnesium 2.2 mg/dL (1.8-2.4)
[2023-05-14 17:19] LABS: INR 1.03; Prothrombin Time 10.9 sec (9.0-11.6)
[2023-05-14 17:20] LABS: Lactate/Lactic Acid 1.3 mmol/L (0.4-2.0)
--- NOTE | 2023-05-14 19:22 | P.HP_ITS ---
H&P: HPI History of Present Illness Chief complaint: VOMITING, SEPSIS Narrative: Patient presented again to the emergency room with increasing abdominal pain. He was seen within a day or so of his hernia surgery. Treated for the pain. CT scan at that time showed to be changes consistent with recent surgery. Did have leukocytosis at that time but no fevers. Over the last several days patient has had increasing fevers up to 103. With pain and fever he presented to his surgeon's office who recommended he be evaluated in the emergency room. In the emergency room found to have multiple intra-abdominal abscesses. Leukocytosis. Patient is admitted for work-up and treatment of same Review of Systems ROS Status of ROS 10 or more systems reviewed and unremarkable except as noted in history and below PFSH [facility] Medical History (Updated 05/14/23 @ 19:59 by Sea Camarena MD) Surgical History (Updated 04/24/23 @ 11:18 by Ellen Kelly NP) Family History (Updated 05/14/23 @ 20:22 by Cecil Mckay) Sister Family history of cancer Family history of diabetes mellitus Mother Family history of diabetes mellitus Social History (Updated 05/14/23 @ 20:29 by Cecil Mckay) Within the past year, how often did you have a drink containing alcohol: monthly or less Smoking status: Never smoker Non-prescribed substance use: cannabis (any form) 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 Highest level of school completed/degree received: high school graduate Are you now , , , , never or living with a partner: In a typical week, how many times do you talk on the telephone with family, friends, or neighbors: 3 or more times per week How often do you get together with friends or relatives: once per week How often do you attend nondenominational or hoahaoism services: never Do you belong to any clubs or organizations such as nondenominational groups unions, fraternal or athletic groups, or school groups: no Total score: 1 Score interpretation: A score of less than or equal to 1 indicates the most socially isolated. Little interest or pleasure in doing things: not at all Feeling down, depressed, or hopeless: not at all Feel stressed/tense/nervous/anxious/difficulty sleeping: only a little Do you think of yourself as: straight/heterosexual Gender Identity: male Meds Home Medications and Allergies Home Medications Medication Instructions Recorded Confirmed Type hydrocodone 5 mg-acetaminophen 325 1 tab PO Q6H PRN pain #14 tabs 05/01/23 Rx mg tablet Allergies Allergy/AdvReac Type Severity Reaction Status Date / Time Penicillins Allergy Rash Verified 04/24/23 11:11 Exam Constitutional Vital Signs, click to edit/add: Last Vital Signs Temp 99.2 F 05/14/23 13:36 Pulse 114 H 05/14/23 18:40 Resp 23 05/14/23 18:20 BP 120/82 05/14/23 19:00 Pulse Ox 94 L 05/14/23 19:10 O2 Del Method Room Air 05/14/23 13:36 Documenting provider has reviewed patient's vital signs: yes Common normals: apparent distress Respiratory Auscultation: diminished lung sounds Cardio Rate: tachycardic GI Inspection: abdominal distension Auscultation: hypoactive bowel sounds Palpation: firm, tender and guarding Results Labs Labs: Short CBC 05/14/23 Range/Units 14:50 WBC 33.1 H* (4.0-11.0) 10^3/uL Hgb 12.6 L (14.0-18.0) g/dL Hct 36.9 L (42.0-54.0) % Plt Count 726 H (150-450) 10^3/uL BMP 05/14/23 14:50 Sodium 135 L Potassium 3.2 L Chloride 100 Carbon Dioxide 25.7 BUN 8.0 Creatinine 0.95 Glucose 114 H Calcium 8.8 Liver Function 05/14/23 Range/Units 14:50 Total Bilirubin 1.0 (0.2-1.0) mg/dL AST 29 (15-37) U/L ALT 96 H (16-63) U/L Alkaline Phosphatase 554 H (46-116) U/L Albumin 2.1 L (3.4-5.0) g/dL ABG ABG results: 05/14/23 16:37 VBG pH 7.493 H VBG pCO2 33.7 L Assessment and Plan Assessment and Plan (1) Post-operative pain: (2) Abdominal pain: (3) Abdominal abscess: (4) Leukocytosis: (5) Sepsis: (6) Febrile illness: Plan Sinus tachycardia, respiratory distress, fever, leukocytosis, thrombocythemia, elevated liver function tests secondary to postsurgical changes with consistent with several intra-abdominal abscesses. Patient meets criteria for sepsis with multisystem organ dysfunction, heme, liver.. Patient at very high risk for progressing to severe sepsis. Maintain high fluid rate. IV antibiotics. Consultation to surgery. Admit patient to ICU Tachycardia likely related to the above-Place patient on monitor Elevated lipase-we will monitor daily. This is likely secondary to inflammation in the abdomen as opposed to acute pancreatitis. Elevated liver function test-this is likely related to the sepsis as outlined above. Moderate protein calorie malnutrition-low albumin-complicating the above-Patient currently n.p.o. We will address this further after surgical intervention tomorrow.
--- NOTE | 2023-05-14 20:05 | PC.NURSE ---
Order obtained for Tylenol 650 mg PO Q6 hours as needed for fever. Pt currently febrile at 102.8 orally. Pt states no allergy to Tylenol. RN overrode for Tylenol 325 mg 2 tabs and administered PO with water at 2004 per MD order and patient request. Med remains unverified by pharmacy at this time. Will cont to monitor.
[2023-05-14 20:18] LABS: Bilirubin Urine NEGATIVE (NEGATIVE); Blood Urine NEGATIVE (NEGATIVE); Clarity Urine CLEAR (CLEAR); Color Urine YELLOW (YELLOW); Glucose Urine UA NEGATIVE (NEGATIVE); Ketones Urine NEGATIVE (NEGATIVE); Leukocyte Esterase Urine NEGATIVE (NEGATIVE); Nitrite Urine NEGATIVE (NEGATIVE); Protein Urine TRACE mg/dL (NEG/TRACE); Specific Gravity Urine <=1.005 (1.005-1.025); pH Urine 7.5 (5.0-9.0)
[2023-05-14] MEDS: LACTATED RINGER'S SOLUTION 1,000 ML 150 ML IV (20:22)
[2023-05-14] MEDS: PANTOPRAZOLE SODIUM 40 MG VIAL IV (20:22)
[2023-05-14] MEDS: METRONIDAZOLE/SODIUM CHLORIDE 500 MG/100 ML PREMIX 100 MG IV (20:24)
[2023-05-14 20:46] LABS: WBC Urine 0-2 #/HPF (NONE SEEN)
[2023-05-14 20:47] LABS: Bacteria Urine NONE SEEN #/HPF (NONE SEEN); Cast Seen? NONE SEEN #/LPF (NONE SEEN); Crystals Seen? None Seen #/HPF (None Seen); Mucus Urine NONE SEEN (NONE SEEN); RBC Urine 0-2 #/HPF (0-2); Squamous Epithelial Cell Urine RARE #/LPF (NONE/RARE)
[2023-05-15] VITALS (117 sets, daily range): BP systolic 87–132; BP diastolic 50–82; PULSE 81–125; RESP 0–38; TEMP 37.1–38.7; O2SAT 87–98; BMI 26.4
[2023-05-15] MEDS: CEFOXITIN SODIUM 2,000 MG in 0.9 % SODIUM CHLORIDE 100 ML IV (01:10)
[2023-05-15] MEDS: ONDANSETRON PF 4 MG/2 ML VIAL IV (02:56)
[2023-05-15] MEDS: METRONIDAZOLE/SODIUM CHLORIDE 500 MG/100 ML PREMIX 100 MG IV ×3 (03:14→20:14)
[2023-05-15] MEDS: ACETAMINOPHEN 325 MG TABLET 650 MG PO ×3 (03:24→20:39)
[2023-05-15] MEDS: LACTATED RINGER'S SOLUTION 1,000 ML 150 ML IV (04:29)
[2023-05-15 04:35] LABS: Hematocrit 32.8 % (42.0-54.0); Mean Corpuscular HGB Conc 33.5 g/dL (29.9-35.2); Mean Corpuscular Hemoglobin 28.6 pg (25.9-34.0); Mean Corpuscular Volume 85.4 fL (80.0-94.0); Mean Platelet Volume 8.4 fL (9.5-13.5); Platelet Count 633 10^3/uL (150-450); Red Blood Count 3.84 10^6/uL (4.70-6.10); Red Cell Distribution Width 15.9 % (11.0-15.0); White Blood Count 28.2 10^3/uL (4.0-11.0)
[2023-05-15 05:00] LABS: Alanine Aminotransferase 69 U/L (16-63); Albumin Globulin Ratio 0.4; Albumin Level 1.8 g/dL (3.4-5.0); Alkaline Phosphatase 415 U/L (46-116); Amylase 62 U/L (25-115); Aspartate Amino Transferase 23 U/L (15-37); BUN Creatinine Ratio 7.8; Bilirubin Total 0.9 mg/dL (0.2-1.0); Carbon Dioxide 25.3 mmol/L (21.0-32.0); Chloride 102 mmol/L (98-107); Estimated GFR (African America >60 (>=60); Estimated GFR (Non-African Ame >60 (>=60); Globulin 4.8 g/dL; Glucose 131 mg/dL (74-106); Potassium 3.3 mmol/L (3.5-5.1); Sodium 137 mmol/L (136-145); Total Protein 6.6 g/dL (6.4-8.2)
[2023-05-15 05:13] LABS: Segmented Neut Absolute Manual 23.97 10^3/uL (1.4-6.5)
[2023-05-15 05:14] LABS: Lymphocytes Absolute Manual 1.41 10^3/uL (1.20-3.80); Monocytes Absolute Manual 2.82 10^3/uL (0.30-0.80)
[2023-05-15] MEDS: 0.9 % SODIUM CHLORIDE 1,000 ML 1000 ML IV (06:10)
[2023-05-15] MEDS: CEFOXITIN SODIUM 2 GM in 0.9 % SODIUM CHLORIDE 100 ML IV ×3 (07:34→20:13)
--- NOTE | 2023-05-15 07:38 | CM.NOTE ---
Rounds made with Dr. Rodrigues, awaiting surgeon to see pt and establish plan of care moving forward. Pt denies needs at this time. Pt had fever trough the night. IV fluids continue.
--- NOTE | 2023-05-15 10:30 | P.PN_ITS ---
Progress Note: Subjective Subjective Interval history: No new complaints overnight, no difficulty with breathing or chest pain. Abdominal pain about the same Exam Constitutional Vital Signs, click to edit/add: Last Vital Signs Temp 99.1 F 05/15/23 07:00 Pulse 93 H 05/15/23 07:00 Resp 18 05/15/23 07:00 BP 119/71 05/15/23 07:00 Pulse Ox 96 05/15/23 07:00 O2 Del Method Room Air 05/15/23 07:00 Documenting provider has reviewed patient's vital signs: yes Common normals: apparent distress Respiratory Auscultation: diminished lung sounds Cardio Rate: tachycardic GI Inspection: abdominal distension Auscultation: hypoactive bowel sounds Palpation: firm, tender and guarding Progress Note: Objective Labs Labs: Short CBC 05/14/23 05/15/23 Range/Units 14:50 04:16 WBC 33.1 H* 28.2 H (4.0-11.0) 10^3/uL Hgb 12.6 L 11.0 L (14.0-18.0) g/dL Hct 36.9 L 32.8 L (42.0-54.0) % Plt Count 726 H 633 H (150-450) 10^3/uL BMP 05/14/23 05/15/23 14:50 04:16 Sodium 135 L 137 Potassium 3.2 L 3.3 L Chloride 100 102 Carbon Dioxide 25.7 25.3 BUN 8.0 7.0 Creatinine 0.95 0.90 Glucose 114 H 131 H Calcium 8.8 8.0 L Liver Function 05/14/23 05/15/23 Range/Units 14:50 04:16 Total Bilirubin 1.0 0.9 (0.2-1.0) mg/dL AST 29 23 (15-37) U/L ALT 96 H 69 H (16-63) U/L Alkaline Phosphatase 554 H 415 H (46-116) U/L Albumin 2.1 L 1.8 L (3.4-5.0) g/dL Urine 05/14/23 Range/Units 19:40 Urine Color Yellow (YELLOW) Urine Clarity Clear (CLEAR) Urine pH 7.5 (5.0-9.0) Ur Specific [place] <=1.005 A (1.005-1.025) Urine Protein Trace (NEG/TRACE) mg/dL Urine Glucose (UA) Negative (NEGATIVE) mg/dL Progress Note: A&P Assessment and Plan (1) Post-operative pain: (2) Abdominal pain: (3) Abdominal abscess: (4) Leukocytosis: (5) Sepsis: (6) Febrile illness: Plan Sinus tachycardia, respiratory distress, fever, leukocytosis with bandemia, thrombocythemia, elevated liver function tests secondary to postsurgical changes with consistent with several intra-abdominal abscesses.? Patient meets criteria for sepsis with multisystem organ dysfunction, (heme, liver).? Patient at very high risk for progressing to severe sepsis.? Maintain high fluid rate.? IV antibiotics.? Give fluid bolus this morning secondary to the persistent tachycardia. Surgery later today. Tachycardia likely related to the above-Place patient on monitor Elevated lipase-we will monitor daily.? This is likely secondary to inflammation in the abdomen as opposed to acute pancreatitis. Elevated liver function test-this is likely related to the sepsis as outlined above. Moderate protein calorie malnutrition-low albumin- worse today as a complication of the sepsis. Hypokalemia-improve Hypocalcemia-May need supplementationd
--- NOTE | 2023-05-15 13:23 | DIETREC ---
Recommend Ensure clear tid po nutritional supplement after surgery if permitted
--- NOTE | 2023-05-15 14:31 | PC.NURSE ---
consent reviewed and time out completed at 1412 by and SONA Woodruff. pt consented to have a TAP block completed by , pt placed on monitor with 2L of O2 via nasal cannula per policy and positioned per anesthesia. block was completed at 1418,vitals were monitored throughout procedure and were WNL,pt will have vitals monitored until they are taken back to the OR. pt tolerated procedure well and has no complaints at this time. pts bed to lowest position with siderails up and call light within reach.
[2023-05-15] MEDS: LACTATED RINGER'S SOLUTION 1,000 ML 1000 ML IV ×3 (16:06→19:47)
[2023-05-15] MEDS: HYDROMORPHONE HCL 1 MG/ML CARTRIDGE INJ (18:21)
--- NOTE | 2023-05-15 19:07 | PC.NURSE ---
patient in OR at this time
--- NOTE | 2023-05-15 19:09 | PC.NURSE ---
patient in OR at this time
--- NOTE | 2023-05-15 19:10 | PC.NURSE ---
patient in OR at this time
--- NOTE | 2023-05-15 19:10 | PC.NURSE ---
patient in OR at this time
--- NOTE | 2023-05-15 19:15 | PC.NURSE ---
patient returns from recovery at this time. Patient is alert but drowsy. all 3 Z[address] drains appear in place with sangenous drainage present in all three. Dressings are intact for all three. Midline abdominal incision present. dressing is dry and intact. Colostomy present. Stoma is beefy and red in appearance. Drainage is serosangeous.
[2023-05-15] MEDS: HYDROMORPHONE HCL 0.5 MG/0.5 ML SYRINGE 1 MG IV (21:57)
[2023-05-16] VITALS (288 sets, daily range): BP systolic 95–150; BP diastolic 58–102; PULSE 99–117; RESP 0–30; TEMP 36.5–37.2; O2SAT 91–100
[2023-05-16] MEDS: HYDROMORPHONE HCL 0.5 MG/0.5 ML SYRINGE 1 MG IV ×3 (00:04→05:21)
[2023-05-16] MEDS: 0.9 % SODIUM CHLORIDE 1,000 ML 1000 ML IV ×3 (00:04→07:51)
[2023-05-16] MEDS: CEFOXITIN SODIUM 2 GM in 0.9 % SODIUM CHLORIDE 100 ML IV ×4 (00:45→19:31)
[2023-05-16] MEDS: LACTATED RINGER'S SOLUTION 1,000 ML 150 ML IV ×3 (01:59→18:03)
[2023-05-16] MEDS: METRONIDAZOLE/SODIUM CHLORIDE 500 MG/100 ML PREMIX 100 MG IV ×4 (02:00→19:32)
[2023-05-16] MEDS: 0.9 % SODIUM CHLORIDE 1,000 ML 999 ML IV (04:15)
[2023-05-16 04:29] LABS: Hematocrit 38.9 % (42.0-54.0); Hemoglobin 12.5 g/dL (14.0-18.0); Mean Corpuscular HGB Conc 32.1 g/dL (29.9-35.2); Mean Corpuscular Hemoglobin 28.5 pg (25.9-34.0); Mean Corpuscular Volume 88.8 fL (80.0-94.0); Mean Platelet Volume 8.8 fL (9.5-13.5); Platelet Count 722 10^3/uL (150-450); Red Blood Count 4.38 10^6/uL (4.70-6.10); Red Cell Distribution Width 16.6 % (11.0-15.0); White Blood Count 30.1 10^3/uL (4.0-11.0)
[2023-05-16 04:34] LABS: Alanine Aminotransferase 43 U/L (16-63); Albumin Globulin Ratio 0.3; Albumin Level 1.5 g/dL (3.4-5.0); Alkaline Phosphatase 277 U/L (46-116); Amylase 21 U/L (25-115); Anion Gap 15.9; Aspartate Amino Transferase 19 U/L (15-37); BUN Creatinine Ratio 10.5; Bilirubin Total 1.7 mg/dL (0.2-1.0); Calcium 7.5 mg/dL (8.5-10.1); Carbon Dioxide 20.7 mmol/L (21.0-32.0); Chloride 104 mmol/L (98-107); Estimated GFR (African America >60 (>=60); Estimated GFR (Non-African Ame >60 (>=60); Globulin 4.6 g/dL; Glucose 115 mg/dL (74-106); Potassium 3.6 mmol/L (3.5-5.1); Sodium 137 mmol/L (136-145); Total Protein 6.1 g/dL (6.4-8.2)
[2023-05-16 04:43] LABS: Band Neutrophils Absolute 2.1 10^3/uL (0.0-0.3); Segmented Neut Absolute Manual 25.88 10^3/uL (1.4-6.5)
[2023-05-16 04:44] LABS: Anisocytosis 1+
[2023-05-16] MEDS: HYDROMORPHONE HCL 1 MG/ML CARTRIDGE IVP ×7 (07:46→22:25)
--- NOTE | 2023-05-16 09:49 | CM.NOTE ---
Rounds made with Dr. Rodrigues. Encouraged the use of the incentive spirometry and will add IPPV treatments. No plan for discharge today.
--- NOTE | 2023-05-16 10:05 | P.PN_ITS ---
Progress Note: Subjective Subjective Interval history: Patient with pain as expected. This feels shortness of breath. Gets hard to take a deep breath. Exam Constitutional Vital Signs, click to edit/add: Last Vital Signs Temp 98.6 F 05/16/23 09:15 Pulse 106 H 05/16/23 09:40 Resp 0 L 05/16/23 09:40 BP 118/79 05/16/23 09:00 Pulse Ox 93 L 05/16/23 09:45 O2 Del Method Nasal Cannula 05/16/23 04:41 O2 Flow Rate 2 05/16/23 06:00 Common normals: apparent distress (Mild [place] distress) Chest Common normals: inspection of chest normal Respiratory Common normals: abnormal respiratory effort Effort & inspection: abnormal respiratory pattern, tachypneic and respiratory distress Auscultation: crackles and diminished lung sounds Cardio Rate: tachycardic GI Common normals: Normal to inspection, nondistended, normoactive bowel sounds present (Deferred examination to surgery) Progress Note: Objective Labs Labs: Short CBC 05/16/23 Range/Units 03:50 WBC 30.1 H (4.0-11.0) 10^3/uL Hgb 12.5 L (14.0-18.0) g/dL Hct 38.9 L (42.0-54.0) % Plt Count 722 H (150-450) 10^3/uL BMP 05/16/23 03:50 Sodium 137 Potassium 3.6 Chloride 104 Carbon Dioxide 20.7 L BUN 11.0 Creatinine 1.05 Glucose 115 H Calcium 7.5 L Liver Function 05/16/23 Range/Units 03:50 Total Bilirubin 1.7 H (0.2-1.0) mg/dL AST 19 (15-37) U/L ALT 43 (16-63) U/L Alkaline Phosphatase 277 H (46-116) U/L Albumin 1.5 L (3.4-5.0) g/dL Progress Note: A&P Assessment and Plan (1) Post-operative pain: (2) Abdominal pain: (3) Abdominal abscess: (4) Leukocytosis: (5) Sepsis: (6) Febrile illness: Plan Sinus tachycardia, respiratory distress, fever, leukocytosis with bandemia, thrombocythemia, elevated liver function tests secondary to postsurgical changes with consistent with several intra-abdominal abscesses.? Patient meets criteria for sepsis with multisystem organ dysfunction, (heme, liver).? Patient at very high risk for progressing to severe sepsis.? Still tachycardic this morning, will repeat fluid bolus. Hopefully initial blood cultures will be returned to tomorrow, check in cultures from surgery Dyspnea secondary to atelectasis secondary to the above-we will try patient on IPV treatments Tachycardia likely related to the above- repeat fluid bolus Elevated lipase-we will monitor daily.? resolved Elevated liver function test-this is likely related to the sepsis as outlined above. Moderate protein calorie malnutrition-severely low albumin- worse today as a complication of the sepsis. Hypokalemia-improve Hypocalcemia-May need supplementation
[2023-05-16] MEDS: IPRATROPIUM/ALBUTEROL SULFATE 3 ML AMPUL.NEB IH ×3 (11:17→22:06)
[2023-05-16] MEDS: SODIUM CHLORIDE 0.9% INHALATION 3 ML NEB IH ×3 (11:34→22:06)
--- NOTE | 2023-05-16 12:47 | P.GSCN_ITS ---
History of Present Illness Consult details Consult date: 05/15/23 Narrative: this patient is a 47-year-old male known to me from undergoing robotic right inguinal hernia repair approximately two weeks ago. He was seen in the office yesterday and was noted to be febrile with some abdominal pain. He was sent to the Emergency Department for further evaluation. CT of the abdomen and pelvis revealed unfortunately multiple intra-abdominal abscesses. He was admitted per the hospitalist place on IV antibiotics and resuscitation undertaken with planned eventual operative intervention. Evaluation today patient is awake and alert and hemodynamically stable. Plan is for robotic exploration and probable laparotomy. 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 Highest level of school completed/degree received: high school graduate Are you now , , , , never or living with a partner: In a typical week, how many times do you talk on the telephone with family, friends, or neighbors: 3 or more times per week How often do you get together with friends or relatives: once per week How often do you attend yarsani or restorationism services: never Do you belong to any clubs or organizations such as yarsani groups unions, fraternal or athletic groups, or school groups: no Total score: 1 Score interpretation: A score of less than or equal to 1 indicates the most socially isolated. Little interest or pleasure in doing things: not at all Feeling down, depressed, or hopeless: not at all Feel stressed/tense/nervous/anxious/difficulty sleeping: only a little Do you think of yourself as: straight/heterosexual Gender Identity: male Meds Home Medications and Allergies Home Medications Medication Instructions Recorded Confirmed Type No Known Home Medications 05/15/23 05/15/23 History Allergies Allergy/AdvReac Type Severity Reaction Status Date / Time Penicillins Allergy Rash Verified 04/24/23 11:11 Exam Constitutional Vital Signs, click to edit/add: Last Vital Signs Temp 97.7 F 05/16/23 09:50 Pulse 104 H 05/16/23 11:40 Resp 0 L 05/16/23 11:40 BP 108/71 05/16/23 11:00 Pulse Ox 93 L 05/16/23 11:36 O2 Del Method Nasal Cannula 05/16/23 11:36 O2 Flow Rate 2 05/16/23 11:36 Common normals: average body habitus and oriented x3 HENMT Common normals: normocephalic Neck & C-Spine Common normals: supple GI Other: abdomen is moderately distended with mild to moderate diffuse tenderness. There is no involuntary guarding no masses are palpable Extremity Common normals: normal to inspection Neuro Common normals: moves all extremities Psych Common normals: mental status grossly normal Results Labs Labs: Abnormal lab results 05/16/23 Range/Units 03:50 WBC 30.1 H (4.0-11.0) 10^3/uL RBC 4.38 L (4.70-6.10) 10^6/uL Hgb 12.5 L (14.0-18.0) g/dL Hct 38.9 L (42.0-54.0) % RDW 16.6 H (11.0-15.0) % Plt Count 722 H (150-450) 10^3/uL MPV 8.8 L (9.5-13.5) fL Band Neutrophils % 7.0 H (0-5) % Lymphocytes % (Manual) 2.0 L (20.5-60.0) % Eosinophils % (Manual) 0.0 L (0.9-7.0) % Basophils % (Manual) 0.0 L (0.2-2.0) % Neutrophils # (Manual) 25.88 H (1.4-6.5) 10^3/uL Band Neutrophils # 2.1 H (0.0-0.3) 10^3/uL Lymphocytes # (Manual) 0.60 L (1.20-3.80) 10^3/uL Monocytes # (Manual) 1.50 H (0.30-0.80) 10^3/uL Carbon Dioxide 20.7 L (21.0-32.0) mmol/L Glucose 115 H (74-106) mg/dL Calcium 7.5 L (8.5-10.1) mg/dL Total Bilirubin 1.7 H (0.2-1.0) mg/dL Alkaline Phosphatase 277 H (46-116) U/L Total Protein 6.1 L (6.4-8.2) g/dL Albumin 1.5 L (3.4-5.0) g/dL Amylase 21 L (25-115) U/L Lipase 61.0 L (73.0-393.0) U/L Diabetes panel 05/16/23 Range/Units 03:50 Sodium 137 (136-145) mmol/L Potassium 3.6 (3.5-5.1) mmol/L Chloride 104 (98-107) mmol/L Carbon Dioxide 20.7 L (21.0-32.0) mmol/L BUN 11.0 (7.0-18.0) mg/dL Creatinine 1.05 (0.70-1.30) mg/dL Glucose 115 H (74-106) mg/dL Calcium 7.5 L (8.5-10.1) mg/dL AST 19 (15-37) U/L ALT 43 (16-63) U/L Alkaline Phosphatase 277 H (46-116) U/L Total Protein 6.1 L (6.4-8.2) g/dL Albumin 1.5 L (3.4-5.0) g/dL Calcium panel 05/16/23 Range/Units 03:50 Calcium 7.5 L (8.5-10.1) mg/dL Albumin 1.5 L (3.4-5.0) g/dL Pituitary panel 05/16/23 Range/Units 03:50 Sodium 137 (136-145) mmol/L Potassium 3.6 (3.5-5.1) mmol/L Chloride 104 (98-107) mmol/L Carbon Dioxide 20.7 L (21.0-32.0) mmol/L BUN 11.0 (7.0-18.0) mg/dL Creatinine 1.05 (0.70-1.30) mg/dL Glucose 115 H (74-106) mg/dL Calcium 7.5 L (8.5-10.1) mg/dL Adrenal panel 05/16/23 Range/Units 03:50 Sodium 137 (136-145) mmol/L Potassium 3.6 (3.5-5.1) mmol/L Chloride 104 (98-107) mmol/L Carbon Dioxide 20.7 L (21.0-32.0) mmol/L BUN 11.0 (7.0-18.0) mg/dL Creatinine 1.05 (0.70-1.30) mg/dL Glucose 115 H (74-106) mg/dL Calcium 7.5 L (8.5-10.1) mg/dL Total Bilirubin 1.7 H (0.2-1.0) mg/dL AST 19 (15-37) U/L ALT 43 (16-63) U/L Alkaline Phosphatase 277 H (46-116) U/L Total Protein 6.1 L (6.4-8.2) g/dL Albumin 1.5 L (3.4-5.0) g/dL All other labs normal. Imaging Abdomen CT scan report/results: report reviewed, image reviewed and other (discussed with radiology) Assessment and Plan Assessment and Plan (1) Post-operative pain: (2) Abdominal pain: (3) Abdominal abscess: Assessment and Plan: with these findings have recommended proceeding with surgical intervention. We will initiate robotic-assisted exploratory laparoscopy and based on CT findings likely eventually convert to laparotomy with drainage and washout as well as potential ostomy or bowel resection. The risks benefits options and potential complications of the procedure were discussed in detail with the patient and his father and he agrees to proceed and consent was signed. (4) Leukocytosis: (5) Sepsis: (6) Febrile illness: Plan Sinus tachycardia, respiratory distress, fever, leukocytosis, thrombocythemia, elevated liver function tests secondary to postsurgical changes with consistent with several intra-abdominal abscesses. Patient meets criteria for sepsis with multisystem organ dysfunction, heme, liver.. Patient at very high risk for progressing to severe sepsis. Maintain high fluid rate. IV antibiotics. Consultation to surgery. Admit patient to ICU Tachycardia likely related to the above-Place patient on monitor Elevated lipase-we will monitor daily. This is likely secondary to inflammation in the abdomen as opposed to acute pancreatitis. Elevated liver function test-this is likely related to the sepsis as outlined above. Moderate protein calorie malnutrition-low albumin-complicating the above-Patient currently n.p.o. We will address this further after surgical intervention tomorrow.
--- NOTE | 2023-05-16 12:53 | P.GSPRC_ITS ---
Date of procedure: 05/15/23 Indications for Procedure: patient is a 47-year-old male who is two weeks status post robotic right angle hernia repair. He was seen for a postoperative visit yesterday and was noted to be febrile with some abdominal pain and distention. Through the Emergency Department CT of the abdomen and pelvis revealed multiple abdominal abscesses. He was admitted and placed on IV antibiotics. After review of the CT I recommended proceeding with robotic/laparoscopic exploration with likely conversion to laparotomy with drainage of the abscesses possible bowel resection and possible ostomy. The risks benefits options and potential complications of the procedure were discussed in detail with the patient and his father and he agreed to proceed and consent was signed. Pre-op diagnosis: multiple intra-abdominal abscesses Post-op diagnosis: same Procedure: robotic-assisted laparoscopy with drainage of multiple abscesses and washout. Laparotomy with further drainage of abscesses, washout, drain placement ?3, loop ileostomy Anesthesia: CAMILA Surgeon: Randolph Perry Procedure Summary: the patient was brought to the operating room placed in supine position. Gen. anesthesia was induced the patient was intubated. The abdomen was prepped and draped in usual sterile fashion. Patient had been receiving IV antibiotics since admission. A small incision was made in the right upper quadrant. Under laparoscopic guidance and 8 mm robotic port was placed through this incision and advanced into the peritoneal cavity under laparoscopic guidance. The abdomen was then insufflated to 15 mmHg of carbon dioxide. The camera was introduced and video laparoscopy performed. Safe port site entry was confirmed. A right lateral abdominal port was in place with a small incision under direct visualization. Adhesions to the anterior abdominal wall were taken down with blunt dissection to allow a 3rd port placement. This was done through the upper midline again under direct visualization. At this point and the da Carlee X I was brought to the field. All ports were docked and instruments introduced in standard fashion. At this point I left the operative field and attended the surgeon console. Attention was initially paid to the left upper quadrant where based on CT a large abscess was noted which communicated into the mid abdomen as well as right lower quadrant. Upon doing so a prominent abscess cavity was entered with significant amount of weight. That fluid. This was readily aspirated. Upon completion of this the area was irrigated. An additional pocket was noted in the lower left pericolic gutter. This also was drained. The omentum was noted to be densely adherent to the abdomen and sidewall. At this point was felt that la parotomy would be necessary to complete the procedure. The da Carlee X I was undocked ports removed and the abdomen desufflated. At this time I returned to the operating table. A midline incision was made extending from above the umbilicus to the mid lower abdomen. This is carried down through subcutaneous tissue with electrocautery. The midline fascia was incised. The peritoneal cavity was entered. This was opened the length of the incision. Exploration was now continued. The previously encountered abscess cavities were again identified. There is noted to be an additional abscess in the mid abdomen. This was opened and drained. A fluid collection in the pelvis was also drained. The mid transverse colon was identified. The omentum was densely adherent as previously noted to what appeared to be the region of the splenic flexure and the descending colon. Despite multiple attempts I was unable to release the omentum from this area. I did not visualize any specific area of perforation or bowel defect. This likely was sealed by the omentum. At this point it was felt that attempting to remove the omentum would likely potentially create further injury to bowel and that further washout with drain placement and a diverting loop ileostomy was planned. Through small incisions three Erlin-Aguirre drains were placed. One in the left paracolic gutter extending to the splenic flexure region. One in the mid upper abdomen. And one in the pelvis. These were sutured in place to the skin with 3-0 nylon. A segment of distal ileum was then identified with adequate mobilization for the planned loop ileostomy. A circular skin defect was then created in the right lower abdomen with electrocautery. Upon reaching the fascia cruciate incision was made. The rectus muscle was divided bluntly. The posterior rectus sheath was then also divided. This through and through defect was now dilated to 3 fingerbreadths. The segment of the distal ileum previously identified was brought out through this defect without difficulty. There was no evidence of twist or tension. The midline fascia was then reapproximated 2 running sutures of O-looped PDS. The skin was reapproximated with isaias. Betadine and Telfa puneet were placed within the incision. Attention was now paid to the loop ileostomy. The bowel was divided transversely with electrocautery. The ileostomy was matured in standard fashion with sutures of 3-0 Vicryl. Upon digital examination both limbs of the ileostomy were patent through the fascial level. The drains were placed to bulb suction. Ostomy appliance was applied. Sterile dressings were applied. Sponge needle and instrument counts were correct at the end of the procedure. The patient tolerated the procedure well and was transferred to the recovery area in stable condition. Estimated blood loss (mL): 100 Specimens: none Complications: No
--- NOTE | 2023-05-16 13:08 | P.GSPN_ITS ---
Progress Note: A&P Assessment and Plan (1) Post-operative pain: (2) Abdominal pain: (3) Abdominal abscess: Assessment and Plan: at this time we will allow sips of clear liquid. We also could patient up to chair. He is encouraged to work on deep breathing (4) Leukocytosis: (5) Sepsis: (6) Febrile illness: Subjective Subjective Interval history: patient reports feeling okay. Some expected abdominal discomfort. He denies nausea or vomiting. Was stable through the night. Exam Narrative Exam Narrative: currently vital signs are stable and patient is afebrile All three ZEV drains with serosanguineous drainage Abdomen with mild distention, all incisions clean dry and intact Constitutional Vital Signs, click to edit/add: Last Vital Signs Temp 97.7 F 05/16/23 09:50 Pulse 104 H 05/16/23 11:40 Resp 0 L 05/16/23 11:40 BP 108/71 05/16/23 11:00 Pulse Ox 93 L 05/16/23 11:36 O2 Del Method Nasal Cannula 05/16/23 11:36 O2 Flow Rate 2 05/16/23 11:36 Urinary Catheter Management Urinary Catheter Management Urethral: Cath placed during this visit: no 2-way Urethral: Cath placed during this visit: yes Urethral indwelling: Yes Reason for continuing: surgical procedure Insertion date: 05/15/23 Insertion time: 17:45 CBC Results Results CBC w Differential: WBC 30.1 10^3/uL (4.0-11.0) H 05/16/23 03:50 RBC 4.38 10^6/uL (4.70-6.10) L 05/16/23 03:50 Hgb 12.5 g/dL (14.0-18.0) L 05/16/23 03:50 Hct 38.9 % (42.0-54.0) L 05/16/23 03:50 MCV 88.8 fL (80.0-94.0) 05/16/23 03:50 MCH 28.5 pg (25.9-34.0) 05/16/23 03:50 MCHC 32.1 g/dL (29.9-35.2) 05/16/23 03:50 RDW 16.6 % (11.0-15.0) H 05/16/23 03:50 Plt Count 722 10^3/uL (150-450) H 05/16/23 03:50 MPV 8.8 fL (9.5-13.5) L 05/16/23 03:50 Neut % (Auto) 89.7 % (43.0-75.0) H 05/02/23 12:25 Neut # (Auto) 16.7 10^3/uL (1.4-6.5) H 05/02/23 12:25 Lymph % (Auto) 6.6 % (20.5-60.0) L 05/02/23 12:25 [place] % (Auto) 3.1 % (1.7-12.0) 05/02/23 12:25 Eos % (Auto) 0.0 % (0.9-7.0) L 05/02/23 12:25 Baso % (Auto) 0.3 % (0.2-2.0) 05/02/23 12:25
--- NOTE | 2023-05-16 14:48 | P.CN_ITS ---
Agree with the above assessment and plan Consult Note: HPI Data of Consult Consult date: 05/16/23 Requesting Physician: Jose Rodrigues MD Primary Care Provider: Shaikh José Miguel MD Family Provider: Geo Mcgovern II, MD Consult Narrative Reason for consult: New ileostomy cc:: CC: Jose Rodrigues MD [facility] Medical History (Updated 05/17/23 @ 12:24 by Randolph Perry MD) Surgical History (Updated 04/24/23 @ 11:18 by Ellen Kelly NP) Family History (Updated 05/14/23 @ 20:22 by Cecil Mckay) Sister Family history of cancer Family history of diabetes mellitus Mother Family history of diabetes mellitus Social History (Updated 05/14/23 @ 20:29 by Cecil Mckay) Within the past year, how often did you have a drink containing alcohol: monthly or less Smoking status: Never smoker Non-prescribed substance use: cannabis (any form) 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 Highest level of school completed/degree received: high school graduate Are you now , , , , never or living with a partner: In a typical week, how many times do you talk on the telephone with family, friends, or neighbors: 3 or more times per week How often do you get together with friends or relatives: once per week How often do you attend sikhism or zoroastrianism services: never Do you belong to any clubs or organizations such as sikhism groups unions, fraternal or athletic groups, or school groups: no Total score: 1 Score interpretation: A score of less than or equal to 1 indicates the most socially isolated. Little interest or pleasure in doing things: not at all Feeling down, depressed, or hopeless: not at all Feel stressed/tense/nervous/anxious/difficulty sleeping: only a little Do you think of yourself as: straight/heterosexual Gender Identity: male Meds Home Medications and Allergies Home Medications Medication Instructions Recorded Confirmed Type No Known Home Medications 05/15/23 05/15/23 History Allergies Allergy/AdvReac Type Severity Reaction Status Date / Time Penicillins Allergy Rash Verified 04/24/23 11:11 Exam Constitutional Vital Signs, click to edit/add: Last Vital Signs Temp 97.7 F 05/16/23 13:30 Pulse 101 H 05/16/23 14:00 Resp 19 05/16/23 13:26 BP 122/77 05/16/23 12:00 Pulse Ox 93 L 05/16/23 11:36 O2 Del Method Nasal Cannula 05/16/23 11:36 O2 Flow Rate 2 05/16/23 11:36 Results Labs Labs: Short CBC 05/16/23 Range/Units 03:50 WBC 30.1 H (4.0-11.0) 10^3/uL Hgb 12.5 L (14.0-18.0) g/dL Hct 38.9 L (42.0-54.0) % Plt Count 722 H (150-450) 10^3/uL BMP 05/16/23 03:50 Sodium 137 Potassium 3.6 Chloride 104 Carbon Dioxide 20.7 L BUN 11.0 Creatinine 1.05 Glucose 115 H Calcium 7.5 L Liver Function 05/16/23 Range/Units 03:50 Total Bilirubin 1.7 H (0.2-1.0) mg/dL AST 19 (15-37) U/L ALT 43 (16-63) U/L Alkaline Phosphatase 277 H (46-116) U/L Albumin 1.5 L (3.4-5.0) g/dL ABG ABG results: 05/14/23 16:37 VBG pH 7.493 H VBG pCO2 33.7 L Assessment and Plan Assessment and Plan (1) Ileostomy care: Plan Patient seen today for start of ostomy teaching. Provided patient with handouts to review. Will return tomorrow for hands-on education and ostomy pouch change. Patient seems receptive to care and education. No specific questions currently. May want his son to be available for teaching as well. Would recommend home care at discharge for assistance with care. I will see patient at his general surgery follow up appointments. Agree With the above assessment and plan
--- NOTE | 2023-05-16 22:06 | RESP.RT ---
Tried decreasing 02 down to 1L and Sp02 dropped to 88%. Increased back up to 2L.
[2023-05-17] VITALS (250 sets, daily range): BP systolic 91–133; BP diastolic 60–89; PULSE 88–115; RESP 0–64; TEMP 36.9–37.5; O2SAT 88–99
[2023-05-17] MEDS: HYDROMORPHONE HCL 1 MG/ML CARTRIDGE IVP ×9 (01:13→23:25)
[2023-05-17] MEDS: LACTATED RINGER'S SOLUTION 1,000 ML 150 ML IV (01:14)
[2023-05-17] MEDS: CEFOXITIN SODIUM 2 GM in 0.9 % SODIUM CHLORIDE 100 ML IV ×2 (01:15→07:33)
[2023-05-17] MEDS: METRONIDAZOLE/SODIUM CHLORIDE 500 MG/100 ML PREMIX 100 MG IV (01:15)
[2023-05-17] MEDS: ACETAMINOPHEN 325 MG TABLET 650 MG PO ×2 (01:19→07:34)
[2023-05-17 04:07] LABS: Basophils Absolute Auto 0.1 10^3/uL (0.0-0.1); Basophils Percent Auto 0.3 % (0.2-2.0); Eosinophils Absolute Auto 0.1 10^3/uL (0.0-0.7); Eosinophils Percent Auto 0.2 % (0.9-7.0); Hematocrit 31.8 % (42.0-54.0); Hemoglobin 10.2 g/dL (14.0-18.0); Immature Granulocytes Abs Auto 0.54 10^3/uL (0.00-0.03); Immature Granulocytes Pct Auto 1.7 % (0.0-0.5); Lymphocytes Absolute Auto 1.8 10^3/uL (1.2-3.8); Lymphocytes Percent Auto 5.6 % (20.5-60.0); Mean Corpuscular HGB Conc 32.1 g/dL (29.9-35.2); Mean Corpuscular Hemoglobin 28.3 pg (25.9-34.0); Mean Corpuscular Volume 88.3 fL (80.0-94.0); Mean Platelet Volume 8.2 fL (9.5-13.5); Monocytes Absolute Auto 1.7 10^3/uL (0.3-0.8); Monocytes Percent Auto 5.5 % (1.7-12.0); Neutrophils Absolute Auto 27.2 10^3/uL (1.4-6.5); Neutrophils Percent Auto 86.7 % (43.0-75.0); Platelet Count 658 10^3/uL (150-450); Red Cell Distribution Width 16.5 % (11.0-15.0)
[2023-05-17 04:15] LABS: White Blood Count 31.3 10^3/uL (4.0-11.0)
[2023-05-17 04:24] LABS: Alanine Aminotransferase 22 U/L (16-63); Albumin Globulin Ratio 0.3; Albumin Level 1.4 g/dL (3.4-5.0); Alkaline Phosphatase 201 U/L (46-116); Anion Gap 11.8; Aspartate Amino Transferase 18 U/L (15-37); BUN Creatinine Ratio 14.1; Bilirubin Total 1.6 mg/dL (0.2-1.0); Calcium 7.6 mg/dL (8.5-10.1); Carbon Dioxide 23.7 mmol/L (21.0-32.0); Chloride 100 mmol/L (98-107); Estimated GFR (African America >60 (>=60); Estimated GFR (Non-African Ame >60 (>=60); Globulin 4.5 g/dL; Glucose 127 mg/dL (74-106); Potassium 3.5 mmol/L (3.5-5.1); Sodium 132 mmol/L (136-145); Total Protein 5.9 g/dL (6.4-8.2)
[2023-05-17] MEDS: SODIUM CHLORIDE 0.9% INHALATION 3 ML NEB IH ×3 (04:37→22:18)
[2023-05-17] MEDS: IPRATROPIUM/ALBUTEROL SULFATE 3 ML AMPUL.NEB IH ×3 (04:38→22:18)
--- NOTE | 2023-05-17 06:03 | XR_ITS ---
The [address] [address] Patient Name: NASIR RUST MRN: [id number] date: 1975 Sex: M Assigned Patient Location: ICU Current Patient Location: ICU Accession/Order Number: [id number] Exam Date: 05/17/2023 06:15 Report Date: 05/17/2023 06:44 At the request of: HERMAN MLILER Procedure: XR chest 1V EXAMINATION: XR chest 1V HISTORY: hypoxia COMPARISON: XR chest 05/14/2023 FINDINGS: LUNGS: Underexpanded lungs with mild stranding on right and opacities within left lung base obscuring the diaphragm margin. VASCULATURE: No increased pulmonary vasculature. PLEURA: No pneumothorax, effusion, or pleural thickening. CARDIAC: No cardiomegaly or cardiac silhouette abnormality. MEDIASTINUM: No visible mass or adenopathy. BONES: No fracture or visible bone lesion. OTHER: Negative. XR/XR chest 1V IMPRESSION: 1. Markedly underexpanded lungs with moderate left basilar infiltrates versus pleural effusion and mild right pulmonary atelectasis versus infiltrates; new since 05/14/2023. Electronically authenticated by: DAISY REDDY Date: 05/17/2023 06:44
--- NOTE | 2023-05-17 08:08 | P.PN_ITS ---
Progress Note: Subjective Subjective Interval history: Breathing feels much improved from yesterday. Exam Constitutional Vital Signs, click to edit/add: Last Vital Signs Temp 99.5 F 05/17/23 07:34 Pulse 106 H 05/17/23 06:00 Resp 20 05/17/23 04:51 BP 133/89 05/17/23 04:02 Pulse Ox 94 L 05/17/23 06:00 O2 Del Method Nasal Cannula 05/17/23 04:51 O2 Flow Rate 2 05/17/23 04:51 Common normals: apparent distress (Mild [place] distress) Chest Common normals: inspection of chest normal Respiratory Common normals: abnormal respiratory effort Effort & inspection: abnormal respiratory pattern (But does seem more comfortable today), tachypneic and respiratory distress (Seems more comfortable today) Auscultation: crackles (Persist but improved) and diminished lung sounds Cardio Rate: tachycardic GI Common normals: Normal to inspection, nondistended, normoactive bowel sounds present (Deferred examination to surgery) Progress Note: Objective Labs Labs: Short CBC 05/17/23 Range/Units 04:01 WBC 31.3 H* (4.0-11.0) 10^3/uL Hgb 10.2 L (14.0-18.0) g/dL Hct 31.8 L (42.0-54.0) % Plt Count 658 H (150-450) 10^3/uL BMP 05/17/23 04:01 Sodium 132 L Potassium 3.5 Chloride 100 Carbon Dioxide 23.7 BUN 12.0 Creatinine 0.85 Glucose 127 H Calcium 7.6 L Liver Function 05/17/23 Range/Units 04:01 Total Bilirubin 1.6 H (0.2-1.0) mg/dL AST 18 (15-37) U/L ALT 22 (16-63) U/L Alkaline Phosphatase 201 H (46-116) U/L Albumin 1.4 L (3.4-5.0) g/dL Progress Note: A&P Assessment and Plan (1) Post-operative pain: (2) Abdominal pain: (3) Abdominal abscess: (4) Leukocytosis: (5) Sepsis: (6) Febrile illness: Plan Sinus tachycardia, respiratory distress, fever, leukocytosis with bandemia, thrombocythemia, elevated liver function tests secondary to postsurgical changes with consistent with several intra-abdominal abscesses.? Patient meets criteria for sepsis with multisystem organ dysfunction, (heme, liver).? Patient at very high risk for progressing to severe sepsis.? WBC elevated , change AB, checked on abd cx - none from surgery, will check cx from ZEV drain Tachycardia likely related to the above-Place patient on monitor Elevated lipase-we will monitor daily.? This is likely secondary to inflammation in the abdomen as opposed to acute pancreatitis. Elevated liver function test-this is likely related to the sepsis as outlined above. severe protein calorie malnutrition-low albumin- worse today as a complication of the sepsis. - add protein supp, diet advancement per surgery Hypokalemia-improve Hypocalcemia-Supplement Dyspnea secondary to atelectasis and pleural effusion on chest x-raywe will back off on IV fluids. Needs to maintain some IV fluidssecondary to the sepsispatient states his breathing is better with the IPV's will maintain thonsed Anemia-acute blood loss anemia secondary to the surgery as outlined above, will check stool also,ose
--- NOTE | 2023-05-17 08:28 | CM.NOTE ---
Rounds made with Dr. Rodrigues, no discharge for pt today. Wound is seeing pt for colostomy teaching. Dr. Rodrigues discussed with pt about possibly changing antibiotics today d/t WBC count elevation again today.
[2023-05-17] MEDS: CLINDAMYCIN PHOSPHATE/D5W 600 MG/50 ML PIGGYBACK 100 MG IV ×3 (09:32→21:31)
[2023-05-17] MEDS: CALCIUM CARBONATE 500 MG (200MG ELEMENTAL) TAB CHEW PO ×3 (09:33→21:30)
[2023-05-17] MEDS: PROSTAT 15 GM PROTEIN/100 CAL 30 ML LIQUID PACKET PO ×2 (09:33→20:39)
--- NOTE | 2023-05-17 12:25 | PM.GSPN ---
Progress Note: A&P Assessment and Plan (1) Abdominal abscess: Assessment and Plan: Patient remained stable postop day two status post laparotomy and drainage of intra-abdominal abscesses. As his ostomy is now functional we will advance his diet to full liquids. Her other supportive cares. Subjective Subjective Interval history: Patient reports feeling better today. He tolerated clear liquids. Ileostomy is functioning. Exam Narrative Exam Narrative: Patient is awake and alert in no distress, right JPs are serosanguineous. Left ZEV is somewhat murky, this was cultured earlier today. Ostomy is pink and functioning. Abdomen is softer. Constitutional Vital Signs, click to edit/add: Last Vital Signs Temp 98.6 F 05/17/23 11:38 Pulse 107 H 05/17/23 11:50 Resp 35 H 05/17/23 11:45 BP 108/72 05/17/23 11:38 Pulse Ox 92 L 05/17/23 10:55 O2 Del Method Room Air 05/17/23 10:55 O2 Flow Rate 2 05/17/23 04:51 Urinary Catheter Management Urinary Catheter Management Urethral: Cath placed during this visit: no Reason for continuing: surgical procedure 2-way Urethral: Cath placed during this visit: yes Urethral indwelling: Yes Reason for continuing: measure accurate output Insertion date: 05/15/23 Insertion time: 17:45 CBC Results Results CBC w Differential: WBC 31.3 10^3/uL (4.0-11.0) H* 05/17/23 04:01 RBC 3.60 10^6/uL (4.70-6.10) L 05/17/23 04:01 Hgb 10.2 g/dL (14.0-18.0) L 05/17/23 04:01 Hct 31.8 % (42.0-54.0) L 05/17/23 04:01 MCV 88.3 fL (80.0-94.0) 05/17/23 04:01 MCH 28.3 pg (25.9-34.0) 05/17/23 04:01 MCHC 32.1 g/dL (29.9-35.2) 05/17/23 04:01 RDW 16.5 % (11.0-15.0) H 05/17/23 04:01 Plt Count 658 10^3/uL (150-450) H 05/17/23 04:01 MPV 8.2 fL (9.5-13.5) L 05/17/23 04:01 Neut % (Auto) 86.7 % (43.0-75.0) H 05/17/23 04:01 Neut # (Auto) 27.2 10^3/uL (1.4-6.5) H 05/17/23 04:01 Lymph % (Auto) 5.6 % (20.5-60.0) L 05/17/23 04:01 [place] % (Auto) 5.5 % (1.7-12.0) 05/17/23 04:01 Eos % (Auto) 0.2 % (0.9-7.0) L 05/17/23 04:01 Baso % (Auto) 0.3 % (0.2-2.0) 05/17/23 04:01
--- NOTE | 2023-05-17 12:47 | PM.CN ---
Consult Note: HPI Data of Consult Consult date: 05/16/23 Requesting Physician: Jose Rodrigues MD Primary Care Provider: Shaikh José Miguel MD Family Provider: Geo Mcgovern II, MD Consult Narrative Reason for consult: Ostomy education and assessment cc:: CC: Jose Rodrigues MD [facility] Medical History (Updated 05/17/23 @ 12:24 by Randolph Perry MD) Surgical History (Updated 04/24/23 @ 11:18 by Ellen Kelly NP) Family History (Updated 05/14/23 @ 20:22 by Cecil Mckay) Sister Family history of cancer Family history of diabetes mellitus Mother Family history of diabetes mellitus Social History (Updated 05/14/23 @ 20:29 by Cecil Mckay) Within the past year, how often did you have a drink containing alcohol: monthly or less Smoking status: Never smoker Non-prescribed substance use: cannabis (any form) 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 Highest level of school completed/degree received: high school graduate Are you now , , , , never or living with a partner: In a typical week, how many times do you talk on the telephone with family, friends, or neighbors: 3 or more times per week How often do you get together with friends or relatives: once per week How often do you attend zoroastrianism or pentecostal services: never Do you belong to any clubs or organizations such as zoroastrianism groups unions, fraternal or athletic groups, or school groups: no Total score: 1 Score interpretation: A score of less than or equal to 1 indicates the most socially isolated. Little interest or pleasure in doing things: not at all Feeling down, depressed, or hopeless: not at all Feel stressed/tense/nervous/anxious/difficulty sleeping: only a little Do you think of yourself as: straight/heterosexual Gender Identity: male Meds Home Medications and Allergies Home Medications Medication Instructions Recorded Confirmed Type No Known Home Medications 05/15/23 05/15/23 History Allergies Allergy/AdvReac Type Severity Reaction Status Date / Time Penicillins Allergy Rash Verified 04/24/23 11:11 Exam Constitutional Vital Signs, click to edit/add: Last Vital Signs Temp 98.6 F 05/17/23 11:38 Pulse 107 H 05/17/23 11:50 Resp 35 H 05/17/23 11:45 BP 108/72 05/17/23 11:38 Pulse Ox 92 L 05/17/23 10:55 O2 Del Method Room Air 05/17/23 10:55 O2 Flow Rate 2 05/17/23 04:51 Results Labs Labs: Short CBC 05/17/23 Range/Units 04:01 WBC 31.3 H* (4.0-11.0) 10^3/uL Hgb 10.2 L (14.0-18.0) g/dL Hct 31.8 L (42.0-54.0) % Plt Count 658 H (150-450) 10^3/uL BMP 05/17/23 04:01 Sodium 132 L Potassium 3.5 Chloride 100 Carbon Dioxide 23.7 BUN 12.0 Creatinine 0.85 Glucose 127 H Calcium 7.6 L Liver Function 05/17/23 Range/Units 04:01 Total Bilirubin 1.6 H (0.2-1.0) mg/dL AST 18 (15-37) U/L ALT 22 (16-63) U/L Alkaline Phosphatase 201 H (46-116) U/L Albumin 1.4 L (3.4-5.0) g/dL ABG ABG results: 05/14/23 16:37 VBG pH 7.493 H VBG pCO2 33.7 L Assessment and Plan Assessment and Plan (1) Abdominal abscess: Plan Returned to see patient today. He states he reviewed hand out education and that is was helpful. Patient verbalized that he is feeling better and ok to start education. Patient educated on pouch removal, sizing stoma, cutting skin barrier, use of accessory products, how to empty pouch, supply needs and nutrition. Patient receptive to teaching. Emptied 150ml green bile effluent from pouch. No flatus noted. Stoma is red, moist. 1 3/4 round. Budded off abdomen. Loop ileostomy with both lumen visualized. Peristomal skin intact. No rash or irriation. Patient was able to cut skin barrier himself with little assistance. Went over use of clamp closure. Showed patient other options for closure and pouching. He would like sample kits sent to house for him to try different pouching options. All questions answered. Left patient with updated education on ileostomy. Will return tomorrow for assessment and to continue education.
[2023-05-17] MEDS: ONDANSETRON PF 4 MG/2 ML VIAL IV (14:38)
--- NOTE | 2023-05-17 17:37 | XR_ITS ---
The [address] [address] Patient Name: NASIR RUST MRN: [id number] date: 1975 Sex: M Assigned Patient Location: ICU Current Patient Location: ICU Accession/Order Number: [id number] Exam Date: 05/17/2023 18:35 Report Date: 05/17/2023 19:54 At the request of: HERMAN MILLER Procedure: XR acute abdomen series EXAM: XR acute abdomen series HISTORY: nausea COMPARISON: Acute abdominal series dated 05/02/2020 fifth. TECHNIQUE: Frontal view of the chest as well as upright and supine views of the abdomen FINDINGS: Stable mild enlarged cardiac silhouette is seen. The lung volumes are seen, likely related to poor inspiratory effort. Small left pleural effusion with adjacent atelectasis/consolidation is seen. Tiny right pleural effusion may also be seen. Small air-fluid levels are seen in the small bowel and colon, which may represent generalized ileus. However, please note CT is more sensitive for evaluation and detection of small bowel obstruction. No gross pneumoperitoneum is seen on this examination XR/XR acute abdomen series IMPRESSION: Small left pleural effusion with adjacent atelectasis/consolidation is seen. Tiny right pleural effusion may also be seen. Small air-fluid levels are seen in the small bowel and colon, which may represent generalized ileus. However, please note CT is more sensitive for evaluation and detection of small bowel obstruction Electronically authenticated by: ALEX GROSS Date: 05/17/2023 19:54
[2023-05-17] MEDS: METOCLOPRAMIDE HCL 10 MG/2 ML VIAL IVP ×2 (17:53→23:28)
[2023-05-17] MEDS: LACTATED RINGER'S SOLUTION 1,000 ML 100 ML IV (18:01)
[2023-05-17 21:52] LABS: Gentamicin Random 1.8 ug/mL
[2023-05-18] VITALS (201 sets, daily range): BP systolic 117–150; BP diastolic 67–102; PULSE 93–126; RESP 10–121; TEMP 37–38.5; O2SAT 85–98
[2023-05-18] MEDS: IPRATROPIUM/ALBUTEROL SULFATE 3 ML AMPUL.NEB IH ×3 (05:05→16:18)
[2023-05-18] MEDS: SODIUM CHLORIDE 0.9% INHALATION 3 ML NEB IH ×3 (05:05→16:18)
[2023-05-18 05:13] LABS: Basophils Absolute Auto 0.1 10^3/uL (0.0-0.1); Basophils Percent Auto 0.2 % (0.2-2.0); Eosinophils Absolute Auto 0.1 10^3/uL (0.0-0.7); Eosinophils Percent Auto 0.2 % (0.9-7.0); Hematocrit 34.1 % (42.0-54.0); Hemoglobin 11.2 g/dL (14.0-18.0); Immature Granulocytes Pct Auto 1.9 % (0.0-0.5); Lymphocytes Absolute Auto 1.7 10^3/uL (1.2-3.8); Lymphocytes Percent Auto 5.2 % (20.5-60.0); Mean Corpuscular HGB Conc 32.8 g/dL (29.9-35.2); Mean Corpuscular Hemoglobin 28.4 pg (25.9-34.0); Mean Corpuscular Volume 86.3 fL (80.0-94.0); Mean Platelet Volume 8.1 fL (9.5-13.5); Monocytes Absolute Auto 1.5 10^3/uL (0.3-0.8); Monocytes Percent Auto 4.6 % (1.7-12.0); Neutrophils Absolute Auto 28.2 10^3/uL (1.4-6.5); Neutrophils Percent Auto 87.9 % (43.0-75.0); Platelet Count 722 10^3/uL (150-450); Red Blood Count 3.95 10^6/uL (4.70-6.10); Red Cell Distribution Width 16.2 % (11.0-15.0)
[2023-05-18 05:20] LABS: White Blood Count 32.1 10^3/uL (4.0-11.0)
[2023-05-18 05:31] LABS: Alanine Aminotransferase 26 U/L (16-63); Albumin Globulin Ratio 0.3; Albumin Level 1.4 g/dL (3.4-5.0); Alkaline Phosphatase 188 U/L (46-116); Anion Gap 9.8; Aspartate Amino Transferase 18 U/L (15-37); BUN Creatinine Ratio 12.2; Bilirubin Total 1.2 mg/dL (0.2-1.0); Carbon Dioxide 27.3 mmol/L (21.0-32.0); Chloride 97 mmol/L (98-107); Estimated GFR (African America >60 (>=60); Estimated GFR (Non-African Ame >60 (>=60); Glucose 129 mg/dL (74-106); Potassium 3.1 mmol/L (3.5-5.1); Sodium 131 mmol/L (136-145); Total Protein 6.4 g/dL (6.4-8.2)
[2023-05-18] MEDS: HYDROMORPHONE HCL 1 MG/ML CARTRIDGE IVP ×7 (05:49→22:50)
[2023-05-18] MEDS: METOCLOPRAMIDE HCL 10 MG/2 ML VIAL IVP ×3 (05:50→19:33)
[2023-05-18] MEDS: CALCIUM CARBONATE 500 MG (200MG ELEMENTAL) TAB CHEW PO ×3 (05:50→22:04)
[2023-05-18] MEDS: CLINDAMYCIN PHOSPHATE/D5W 600 MG/50 ML PIGGYBACK 100 MG IV ×2 (05:51→16:07)
[2023-05-18] MEDS: LACTATED RINGER'S SOLUTION 1,000 ML 100 ML IV (05:51)
--- NOTE | 2023-05-18 07:48 | P.DS_ITS ---
DS: Providers Provider Date of admission: 05/14/23 19:20 Primary care physician: Shaikh José Miguel MD Consults: 05/14/23 19:10 Consult to General Surgeon Routine Consulting Provider: Randolph Perry DS: Diagnosis Discharge Diagnosis (1) Abdominal abscess: (2) Abdominal pain: (3) Leukocytosis: (4) Sepsis: (5) Febrile illness: Plan Sinus tachycardia, respiratory distress, fever, leukocytosis with bandemia, thrombocythemia, elevated liver function tests secondary to postsurgical changes with consistent with several intra-abdominal abscesses.? Patient meets criteria for sepsis with multisystem organ dysfunction, (heme, liver).? Tachycardia likely related to the above Elevated lipase Elevated liver function test severe protein calorie malnutrition Hypokalemia -Supplement Dyspnea secondary to atelectasis and pleural effusion on chest x-ray check on CT scan of abdomen and pelvis and evaluation for the lower lung johnson with that. Anemia-acute blood loss anemia secondary to the surgery as outlined above, will check stool also, DS: Summary Hospital Course Hospital Course: Patient is status post inguinal hernia repair. He is having increasing pain since the day of surgery. Seen in the ER the day after surgery. CT scan reviewed. Thought initially just postop changes. Patient's pain persisted and now with fever presented to surgeon's office and he recommended referral to ER. In ER found to have multiple intra-abdominal abscesses. Case was discussed with surgeon. Keith and patient was admitted here. Patient was initially placed on antibiotics for broad-spectrum coverage. Failure to improve the antibiotics were adjusted. Patient condition from an abdominal standpoint was fairly stable, but blood cell count however was not improving despite aggressive IV antibiotics. Is not having any drainage from his JPs, general surgery recommended attempting to flush the ports to see if that would improve drainage. That was ineffective.. Repeat CT scan confirms still with fluid collections. Culture positive from what fluid was draining from the [address] scan showed lower lung field possible pneumonia. But patient tachypneic but no cough. Reviewing those findings from possible significant for initial onset of ARDS with increasing O2 requirement 3-4 L. With the lack of improvement of intra- abdominal abscesses. ARDS. Case was discussed with intensive care at tertiary care facility. They agreed except patient in transfer. Status at Discharge Functional status at discharge: independent ambulation Overall status at discharge: patient is not back to baseline Time Spent with Patient Time attestation: Total time spent providing and/or coordinating discharge services: Exam Narrative Exam Narrative: See physical exam from earlier in the day. On progress note Constitutional Vital Signs, click to edit/add: Last Vital Signs Temp 98.6 F 05/18/23 23:01 Pulse 94 H 05/18/23 23:02 Resp 121 H 05/18/23 23:00 BP 147/95 H 05/18/23 22:51 Pulse Ox 95 05/18/23 22:25 O2 Del Method Nasal Cannula 05/18/23 14:50 O2 Flow Rate 3 05/18/23 18:42 Discharge Plan Discharge Disposition: [facility] Condition: Serious Discharge Date/Time: 05/18/23 23:23 Discharge Location: [facility]
[2023-05-18] MEDS: PROSTAT 15 GM PROTEIN/100 CAL 30 ML LIQUID PACKET PO ×2 (08:08→20:00)
--- NOTE | 2023-05-18 08:32 | P.PN_ITS ---
Progress Note: Subjective Subjective Interval history: Patient reading continues to improve, able to take a deeper breath, did have a sputum production, culture obtained, was able to be off of supplemental oxygen for period of time earlier, oxygen dips down to less than 88% with activity. Exam Constitutional Vital Signs, click to edit/add: Last Vital Signs Temp 98.6 F 05/18/23 05:49 Pulse 113 H 05/18/23 06:00 Resp 20 05/18/23 05:19 BP 150/102 H 05/18/23 05:41 Pulse Ox 92 L 05/18/23 06:00 O2 Del Method Nasal Cannula 05/18/23 05:30 O2 Flow Rate 2 05/18/23 05:30 Common normals: apparent distress (Mild [place] distress) Chest Common normals: inspection of chest normal Respiratory Common normals: normal respiratory effort Effort & inspection: no respiratory distress (Seems more comfortable today) Auscultation: crackles (Persist but improved) and diminished lung sounds (But better air exchange today) Cardio Rate: tachycardic GI Common normals: Normal to inspection, nondistended, normoactive bowel sounds present (Deferred examination to surgery) Progress Note: Objective Labs Labs: Short CBC 05/18/23 Range/Units 04:44 WBC 32.1 H* (4.0-11.0) 10^3/uL Hgb 11.2 L (14.0-18.0) g/dL Hct 34.1 L (42.0-54.0) % Plt Count 722 H (150-450) 10^3/uL BMP 05/18/23 04:44 Sodium 131 L Potassium 3.1 L Chloride 97 L Carbon Dioxide 27.3 BUN 9.0 Creatinine 0.74 Glucose 129 H Calcium 8.0 L Liver Function 05/18/23 Range/Units 04:44 Total Bilirubin 1.2 H (0.2-1.0) mg/dL AST 18 (15-37) U/L ALT 26 (16-63) U/L Alkaline Phosphatase 188 H (46-116) U/L Albumin 1.4 L (3.4-5.0) g/dL Progress Note: A&P Assessment and Plan (1) Abdominal abscess: (2) Abdominal pain: (3) Leukocytosis: (4) Sepsis: (5) Febrile illness: Plan Sinus tachycardia, respiratory distress, fever, leukocytosis with bandemia, thrombocythemia, elevated liver function tests secondary to postsurgical changes with consistent with several intra-abdominal abscesses.? Patient meets criteria for sepsis with multisystem organ dysfunction, (heme, liver).? Patient at very high risk for progressing to severe sepsis.? WBC elevated slightly again today, repeat at noon. Antibiotics were just changed yesterday. Culture from ZEV drain still growing Enterobacter. The gentamicin should cover that. Sensitivities back tomorrow, with hyponatremia we will change patient from LR to normal saline-check repeat CT scan ZEV drain is not draining significant amounts but patient still feeling pressure. Tachycardia likely related to the above-Place patient on monitor Elevated lipase-we will monitor daily.? This is likely secondary to inflammation in the abdomen as opposed to acute pancreatitis. Elevated liver function test-this is likely related to the sepsis as outlined above.-Continue to improve severe protein calorie malnutrition-low albumin- worse today as a complication of the sepsis. -We will give 1 dose of albumin today understanding that its not a long-term effect Hypokalemia-supplement Hypocalcemia-Supplement Dyspnea secondary to atelectasis and pleural effusion on chest x-ray check on CT scan of abdomen and pelvis and evaluation for the lower lung johnson with that. But overall breathing feels improved to him Anemia-acute blood loss anemia secondary to the surgery as outlined above, will check stool also,
--- NOTE | 2023-05-18 08:44 | CT_ITS ---
[address] [address] Patient Name: NASIR RUST MRN: [facility]:[id number] date: 1975 Sex: M Assigned Patient Location: ICU Current Patient Location: ICU Accession/Order Number: [id number] Exam Date: 05/18/2023 10:54 Report Date: 05/18/2023 11:51 At the request of: HERMAN MILLER Procedure: CT abdomen pelvis w con EXAM: CT abdomen pelvis w con HISTORY: intrabdominal abscess, persistent leukocytosis COMPARISON: 05/14/2023 TECHNIQUE: Axial CT imaging was performed through the abdomen and pelvis with intravenous contrast. Multiplanar reformats were performed. Dose reduction techniques were achieved by using automated exposure control and/or adjustment of mA and/or kV according to patient size and/or use of iterative reconstruction technique. FINDINGS: Lung bases: Interval increase in bilateral pleural effusions and bilateral lower lobe consolidations now is a small right and [id number] left pleural effusions with left greater than right lower lobes new consolidations, representing multifocal pneumonia. GI upper: Unremarkable. Liver: Normal size and contour. Gallbladder: No significant abnormality. No cholelithiasis. Biliary system: No intra or extrahepatic biliary ductal dilatation. Spleen: Normal size. Persistent partially rim calcified splenic cyst. Pancreas: Unremarkable. Adrenal glands: Normal adrenal glands. Kidneys/ureters: Normal contours. No hydronephrosis. No nephrolithiasis or ureterolithiasis. Vessels: No aneurysm. Lymph Nodes: There are paraesophageal and mesenteric prominent lymph nodes, likely reactive. Small bowel: Oral contrast is seen in the mid abdominal small bowel loops. There is mild dilatation of the small bowel loops measuring up to 3.3 cm without transitional point, likely representing ileus. Colon: No dilatation. Redemonstration of paracolic wall thickening with surrounding fat stranding, may represent infectious or inflammatory/reactive colitis. Appendix: No findings of appendicitis. Peritoneal cavity: No pneumoperitoneum. New small to moderate septated perisplenic and small perihepatic ascites. Status post bilateral ventral abdominal surgical drain with distal tip within the left mid/upper abdominal abscess. New rim enhancing fluid collection in the left anterolateral pararenal space measuring 2.7 x 3.4 x 4 cm (series 3, image 90). Interval decrease in rim enhancing fluid and gas collection extending from the left upper abdomen to the right lower abdomen, now measures 5.2 x 15 x 22 cm (previously was 8.7 x 23 x 22 cm). Slight decrease in size of rim-enhancing fluid and gas collection along the left paracolic gutter, now measures 4.6 x 7.7 x 17 cm (previously was 4.6 x 9.8 x 18 cm). Interval decrease in size of rim-enhancing fluid and gas collection in the pelvis, now measures 3.5 x 10.7 x 2.1 cm (previously was 6.3 x 8.7 x 4.7 cm. Lower : The prostate is unremarkable. Chowdary catheter balloon is seen within the collapsed urinary bladder. Bones: No acute bony abnormality. Soft tissues: Sutures are seen along the mid ventral abdomen with subcutaneous edema and emphysema. Redemonstration of right lower abdomen ileostomy. Additional findings: None. CT/CT abdomen pelvis w con IMPRESSION: Interval decrease in abscesses in the mid pelvis, left paracolic gutter and extending from the left upper to the right lower abdomen as described above. New 2.7 x 3.4 x 4 cm left anterolateral pararenal abscess. New small to moderate septated perisplenic and small perihepatic ascites. Interval development of multifocal pneumonia/aspiration pneumonia as described above. Electronically authenticated by: JOSE CAMPBELL Date: 05/18/2023 11:51
[2023-05-18] MEDS: ALBUMIN HUMAN 50 GM/200 ML PREMIX IV (09:03)
[2023-05-18] MEDS: 0.9 % SODIUM CHLORIDE 1,000 ML 75 ML IV ×2 (09:05→21:20)
--- NOTE | 2023-05-18 09:09 | CM.NOTE ---
Rounds made with Dr. Rodrigues, discussed with pt about continued High WBC and possible CT of abdomen today. Pt verbalizes understanding. Wound also in for colostomy education.
--- NOTE | 2023-05-18 10:25 | PM.GSPN ---
Progress Note: A&P Assessment and Plan (1) Abdominal abscess: Assessment and Plan: will maintain current diet, CT of the abdomen ordered Subjective Subjective Interval history: patient reports feeling okay. Breathing seems more labored today with respiratory rate of thirty-eight. Apparently also has a productive cough. He is tolerating full liquids and his ostomy is working well. Exam Narrative Exam Narrative: patient is awake and alert and in no distress. Is somewhat dyspneic. Abdomen with mild distention. Ostomy bag with bilious contents. Left-sided ZEV still with somewhat dark drainage right-sided ZEV serosanguineous incision is intact Constitutional Vital Signs, click to edit/add: Last Vital Signs Temp 99.5 F 05/18/23 08:00 Pulse 111 H 05/18/23 10:00 Resp 38 H 05/18/23 09:15 BP 123/80 05/18/23 08:00 Pulse Ox 93 L 05/18/23 08:00 O2 Del Method Nasal Cannula 05/18/23 05:30 O2 Flow Rate 2 05/18/23 08:00 Urinary Catheter Management Urinary Catheter Management Urethral: Cath placed during this visit: no Reason for continuing: measure accurate output 2-way Urethral: Cath placed during this visit: yes Urethral indwelling: Yes Reason for continuing: measure accurate output Insertion date: 05/15/23 Insertion time: 17:45 CBC Results Results CBC w Differential: WBC 32.1 10^3/uL (4.0-11.0) H* 05/18/23 04:44 RBC 3.95 10^6/uL (4.70-6.10) L 05/18/23 04:44 Hgb 11.2 g/dL (14.0-18.0) L 05/18/23 04:44 Hct 34.1 % (42.0-54.0) L 05/18/23 04:44 MCV 86.3 fL (80.0-94.0) 05/18/23 04:44 MCH 28.4 pg (25.9-34.0) 05/18/23 04:44 MCHC 32.8 g/dL (29.9-35.2) 05/18/23 04:44 RDW 16.2 % (11.0-15.0) H 05/18/23 04:44 Plt Count 722 10^3/uL (150-450) H 05/18/23 04:44 MPV 8.1 fL (9.5-13.5) L 05/18/23 04:44 Neut % (Auto) 87.9 % (43.0-75.0) H 05/18/23 04:44 Neut # (Auto) 28.2 10^3/uL (1.4-6.5) H 05/18/23 04:44 Lymph % (Auto) 5.2 % (20.5-60.0) L 05/18/23 04:44 [place] % (Auto) 4.6 % (1.7-12.0) 05/18/23 04:44 Eos % (Auto) 0.2 % (0.9-7.0) L 05/18/23 04:44 Baso % (Auto) 0.2 % (0.2-2.0) 05/18/23 04:44
--- NOTE | 2023-05-18 11:00 | PC.NURSE ---
05/18/[address] anna updated of + body fluid culture. Dante Villalta RN
[2023-05-18] MEDS: CLINDAMYCIN PHOSPHATE/D5W 600 MG/50 ML PIGGYBACK 50 MG IV (11:31)
[2023-05-18 11:42] LABS: PCO2 VBG 33.5 mmHg (40.0-52.0); pH VBG 7.512 (7.330-7.430)
[2023-05-18 11:56] LABS: Hematocrit 31.6 % (42.0-54.0); Hemoglobin 10.2 g/dL (14.0-18.0); Mean Corpuscular HGB Conc 32.3 g/dL (29.9-35.2); Mean Corpuscular Hemoglobin 28.1 pg (25.9-34.0); Mean Corpuscular Volume 87.1 fL (80.0-94.0); Mean Platelet Volume 8.3 fL (9.5-13.5); Platelet Count 684 10^3/uL (150-450); Red Blood Count 3.63 10^6/uL (4.70-6.10); Red Cell Distribution Width 16.1 % (11.0-15.0); White Blood Count 29.4 10^3/uL (4.0-11.0)
[2023-05-18 12:34] LABS: Lymphocytes Absolute Manual 1.17 10^3/uL (1.20-3.80); Monocytes Absolute Manual 0.58 10^3/uL (0.30-0.80); Segmented Neut Absolute Manual 27.04 10^3/uL (1.4-6.5)
[2023-05-18 12:35] LABS: Atypical Lymphocytes Abs Man 0.6
[2023-05-18 12:36] LABS: Anisocytosis 1+; Poikilocytosis 1+
[2023-05-18 12:37] LABS: Tear Drop Cells 1+
--- NOTE | 2023-05-18 13:28 | PC.NURSE ---
05/18/[address] Perry following care of benedict drains to update on inability to flush due to closed system, along with drain outputs and consistency. awaiting return call. Dante Villalta RN
--- NOTE | 2023-05-18 14:22 | PC.NURSE ---
05/18/[address] raymond confirmed with ICU coagulating drying supervisor ok to remove bulb to pt benedict drain and flush drains with 5-10 mL NS, did as ordered, left gutter unable to instill 1 mL of NS into BENEDICT drain tubing meeting resistance, continues with dark brown drainage into bulb, both mid abd and pelvis benedict drains flushed with 7 mL of NS instilled without resistance and saline returning along with drainage in bulb. call out to dr raymond to update on non patency of left gutter benedict drain. Dante Villalta RN
[2023-05-18] MEDS: POTASSIUM CHLORIDE 10 MEQ ER TABLET PO (14:46)
--- NOTE | 2023-05-18 14:51 | PC.NURSE ---
05/18/[address] Perry updated on non patency of left gutter benedict drain. ordered to continue to attempt to instill NS 5-10 mL NS into each drain QID if meeting resistance it's ok will reassess pt tomorrow. updated ICU shuttle veneering supervisor and order placed as ordered. Dante Villalta RN
--- NOTE | 2023-05-18 16:33 | PC.NURSE ---
1630- Call from , voiced concern with pts respiratory status and increased pain. Feels pt has higher needs and wants to transfer. Pt aware [facility]. plans to visit.
--- NOTE | 2023-05-18 17:23 | PC.NURSE ---
1715- Call from , spoke with and Noelle. They do have an accepting doctor, Sayd. Advised [facility] will be calling us with availability, or follow up with them in 30 minutes.
--- NOTE | 2023-05-18 18:42 | PC.NURSE ---
SPO2 decreased with transfer to recliner on 3lpm. Did take a few minutes to recover with deep breathing.
--- NOTE | 2023-05-18 19:05 | PC.NURSE ---
Pt was getting ABG drawn, ostomy bag was leaking. He was able to stand with assistance from recliner for personal care and linen change. Father remains at bedside. RT entered room after personal care. around 1845 spoke with avionics supervisor Lizzie and explained situation, she was aware and spoke with physicians. Insole And Outsole Preparer Cierra is also aware of transportation scheduled.
[2023-05-18 19:24] LABS: ABG PCO2 33.7 mmHg (35.0-45.0); Allen Test POSITIVE (POSITIVE); Base Excess ABG 4.8 mmol/L (-2.0-2.0); HCO3 ABG 27.6 mmol/L (22.0-26.0); Oxygen Saturation ABG 92.2 %; PO2 ABG 54.9 mmHg (80.0-100.0); pH ABG 7.521 (7.350-7.450)
[2023-05-18 19:25] LABS: Liters per Minute 3; O2 Mode NC; Puncture Site LR
[2023-05-18] MEDS: ACETAMINOPHEN 325 MG TABLET 650 MG PO (21:20)
--- NOTE | 2023-05-18 23:24 | PC.NURSE ---
Pt left with [facility] with 3L O2 NC, NS infusing at 75ml/hr and cardiac monitoring. Paperwork given to EMS staff and Pt alert and oriented and father at bedside. all belongings sent with pt and after being bagged up by his father
--- NOTE | 2023-05-18 23:36 | PC.NURSE ---
report called to nurse at [facility]
== END 2023-05-18 23:23 | disposition short-term general hospital (02) | DRG 856 ==
LOC: ER 17:49 → ICU 19:38
PROVIDERS: Physician Assistant; Surgery; Admitting Provider Emergency Medicine; Emergency Provider Emergency Medicine; Family Provider Anesthesiology; PCP Internal Medicine; Visit Provider Family Medicine
PROC: 0D1B0Z4 Bypass Ileum to Cutaneous, Open Approach (ICD-10-PCS; principal; 2023-05-15 14:05)
DX: T81.43XA Infection following a procedure, organ and space surgical site, initial encounter (principal); E43 Unspecified severe protein-calorie malnutrition; K65.1 Peritoneal abscess; J80 Acute respiratory distress syndrome; J18.9 Pneumonia, unspecified organism; J98.11 Atelectasis; J90 Pleural effusion, not elsewhere classified; D62 Acute posthemorrhagic anemia; E87.1 Hypo-osmolality and hyponatremia; T81.44XA Sepsis following a procedure, initial encounter; Y83.8 Other surgical procedures as the cause of abnormal reaction of the patient, or of later complication, without mention of misadventure at the time of the procedure; B96.89 Other specified bacterial agents as the cause of diseases classified elsewhere; Z68.26 Body mass index [BMI] 26.0-26.9, adult; E86.0 Dehydration; E87.6 Hypokalemia; E83.51 Hypocalcemia; K66.0 Peritoneal adhesions (postprocedural) (postinfection); Z53.31 Laparoscopic surgical procedure converted to open procedure; Z79.891 Long term (current) use of opiate analgesic; Z88.0 Allergy status to penicillin; Z83.3 Family history of diabetes mellitus
CPT/HCPCS: 36415; 36600; 64488; 71045; 71046; 74022; 74177; 80053; 80170; 81001; 81003; 82150; 82800; 82805; 83605; 83690; 83735; 84145; 85025; 85027; 85610; 87040; 87070; 87086; 87106; 87150; 87186; 87205; 93005; 94640; 94667; 94668; 94761; 96365; 96366; 96367; 96368; 96375; 96376; 99285; G0328; J1170; J2704; J3370; P9047; Q9966; Q9967

== ENCOUNTER 2023-06-08 17:13 | Outpatient (REF) | payer OTHER, SELFPAY ==
[2023-06-08 17:40] LABS: Platelet Count 715 10^3/uL (150-450); White Blood Count 9.9 10^3/uL (4.0-11.0)
[2023-06-08 17:49] LABS: Alanine Aminotransferase 44 U/L (16-63); Albumin Globulin Ratio 0.5; Albumin Level 2.9 g/dL (3.4-5.0); Alkaline Phosphatase 236 U/L (46-116); Aspartate Amino Transferase 32 U/L (15-37); Bilirubin Direct 0.1 mg/dL (0.0-0.2); Bilirubin Total 0.3 mg/dL (0.2-1.0); Estimated GFR (African America >60 (>=60); Estimated GFR (Non-African Ame >60 (>=60); Globulin 5.5 g/dL; Total Protein 8.4 g/dL (6.4-8.2)
== END 2023-06-08 17:14 | disposition home or self-care (01) ==
LOC: LAB 17:13
PROVIDERS: Family Provider Anesthesiology; PCP Internal Medicine; Visit Provider Internal Medicine
DX: A41.9 Sepsis, unspecified organism (principal)
CPT/HCPCS: 36415; 80076; 82565; 85049

== ENCOUNTER 2023-06-15 14:42 | Outpatient (REF) | payer OTHER, SELFPAY ==
[2023-06-15 15:29] LABS: Platelet Count 697 10^3/uL (150-450); White Blood Count 10.3 10^3/uL (4.0-11.0)
[2023-06-15 15:36] LABS: Alanine Aminotransferase 47 U/L (16-63); Albumin Globulin Ratio 0.6; Albumin Level 3.1 g/dL (3.4-5.0); Alkaline Phosphatase 180 U/L (46-116); Aspartate Amino Transferase 27 U/L (15-37); Bilirubin Direct 0.1 mg/dL (0.0-0.2); Bilirubin Total 0.4 mg/dL (0.2-1.0); Estimated GFR (African America >60 (>=60); Estimated GFR (Non-African Ame >60 (>=60); Total Protein 8.1 g/dL (6.4-8.2)
== END 2023-06-15 14:43 | disposition home or self-care (01) ==
LOC: LAB 14:42
PROVIDERS: Family Provider Anesthesiology; PCP Internal Medicine; Visit Provider Internal Medicine
DX: A41.50 Gram-negative sepsis, unspecified (principal)
CPT/HCPCS: 36415; 80076; 82565; 85049

== ENCOUNTER 2023-06-29 10:23 | Outpatient (REF) | payer OTHER, SELFPAY ==
[2023-06-29 10:56] LABS: Hemoglobin 12.8 g/dL (14.0-18.0); Mean Corpuscular Hemoglobin 27.5 pg (25.9-34.0); Mean Platelet Volume 8.9 fL (9.5-13.5); Platelet Count 444 10^3/uL (150-450); Red Blood Count 4.65 10^6/uL (4.70-6.10); Red Cell Distribution Width 16.4 % (11.0-15.0); White Blood Count 6.5 10^3/uL (4.0-11.0)
[2023-06-29 12:01] LABS: Alanine Aminotransferase 76 U/L (16-63); Albumin Globulin Ratio 0.8; Albumin Level 3.4 g/dL (3.4-5.0); Alkaline Phosphatase 141 U/L (46-116); Aspartate Amino Transferase 35 U/L (15-37); Bilirubin Direct 0.1 mg/dL (0.0-0.2); Bilirubin Total 0.4 mg/dL (0.2-1.0); Estimated GFR (African America >60 (>=60); Estimated GFR (Non-African Ame >60 (>=60); Globulin 4.1 g/dL; Total Protein 7.5 g/dL (6.4-8.2)
== END 2023-06-29 10:24 | disposition home or self-care (01) ==
LOC: LAB 10:23
PROVIDERS: Family Provider Anesthesiology; PCP Internal Medicine; Visit Provider Internal Medicine
DX: A41.50 Gram-negative sepsis, unspecified (principal); K65.1 Peritoneal abscess
CPT/HCPCS: 36415; 80076; 82565; 85027

== ENCOUNTER 2023-07-06 15:32 | Outpatient (REF) | payer OTHER, SELFPAY ==
[2023-07-06 16:03] LABS: Alanine Aminotransferase 155 U/L (16-63); Albumin Globulin Ratio 0.9; Albumin Level 3.6 g/dL (3.4-5.0); Alkaline Phosphatase 192 U/L (46-116); Aspartate Amino Transferase 156 U/L (15-37); Bilirubin Direct 0.4 mg/dL (0.0-0.2); Bilirubin Total 0.9 mg/dL (0.2-1.0); Estimated GFR (African America >60 (>=60); Estimated GFR (Non-African Ame >60 (>=60); Globulin 4.1 g/dL; Platelet Count 442 10^3/uL (150-450); Total Protein 7.7 g/dL (6.4-8.2); White Blood Count 9.4 10^3/uL (4.0-11.0)
== END 2023-07-06 15:33 | disposition home or self-care (01) ==
LOC: LAB 15:32
PROVIDERS: Family Provider Anesthesiology; PCP Internal Medicine; Visit Provider Internal Medicine
DX: A41.50 Gram-negative sepsis, unspecified (principal); K65.1 Peritoneal abscess
CPT/HCPCS: 36415; 80076; 82565; 85049

== ENCOUNTER 2023-12-10 07:56 | Outpatient (RCR) | payer BC, MEDICAID, SELFPAY | END 2023-12-11 11:12 | disposition home or self-care (01) | LOC: OT 07:56 | PROVIDERS: Family Provider Anesthesiology; PCP Internal Medicine; Visit Provider Internal Medicine | DX: Z98.890 Other specified postprocedural states (principal); R10.84 Generalized abdominal pain | CPT/HCPCS: 97167 ==